=== PATIENT | female | born 1950 | race Caucasian/White ===

== ENCOUNTER → 2016-12-27 | Outpatient (CLI) | payer MEDICARE ==
[~2016-12-27] MED LIST: ACYC-113 PO; ASPI-515 PO; DIPH25CA61 PO; FURO20TA3 PO; GABA300C10 PO; METO25TA35 PO; SIMV40TA3 PO; TOPI-33 PO; VENL100T PO
== END | disposition home or self-care (01) ==
LOC: CFH 10:10
PROVIDERS: ATTEND Nurse Practitioner Family
DX: J90 Pleural effusion, not elsewhere classified (principal); Z96.611 Presence of right artificial shoulder joint
CPT/HCPCS: 71020

== ENCOUNTER → 2017-01-03 | Outpatient (CLI) | payer MEDICARE | END | disposition home or self-care (01) | LOC: CFH 11:13 | PROVIDERS: ATTEND Nurse Practitioner Family | DX: J18.9 Pneumonia, unspecified organism (principal); Z96.611 Presence of right artificial shoulder joint | CPT/HCPCS: 71020 ==

== ENCOUNTER → 2017-05-24 | Outpatient (CLI) | payer MEDICARE ==
[~2017-05-24] MED LIST changes: -TOPI-33 PO; +TOPI25TA8 PO
== END | disposition home or self-care (01) ==
LOC: CFH 12:02
PROVIDERS: ATTEND Nurse Practitioner Family
DX: J18.9 Pneumonia, unspecified organism (principal)
CPT/HCPCS: 71020

== ENCOUNTER → 2017-05-31 | Outpatient (CLI) | payer MEDICARE | END | disposition home or self-care (01) | LOC: CFH 15:24 | PROVIDERS: ATTEND Nurse Practitioner Family | DX: J18.9 Pneumonia, unspecified organism (principal) | CPT/HCPCS: 71020 ==

== ENCOUNTER → 2017-06-10 | Outpatient (CLI) | payer MEDICARE | END | disposition home or self-care (01) | LOC: CFH 14:20 | PROVIDERS: ATTEND Nurse Practitioner Family | DX: J18.9 Pneumonia, unspecified organism (principal) | CPT/HCPCS: 71020 ==

== ENCOUNTER → 2017-06-22 | Outpatient (CLI) | payer MEDICARE | END | disposition home or self-care (01) | LOC: CFH 11:52 | PROVIDERS: ATTEND Nurse Practitioner Family | DX: J18.9 Pneumonia, unspecified organism (principal) | CPT/HCPCS: 71046 ==

== ENCOUNTER → 2017-07-08 | Outpatient (CLI) | payer MEDICARE | END | disposition home or self-care (01) | LOC: CFH 11:30 | PROVIDERS: ATTEND Nurse Practitioner Family | DX: J18.9 Pneumonia, unspecified organism (principal) | CPT/HCPCS: 71046 ==

== ENCOUNTER → 2017-07-28 | Outpatient (CLI) | payer MEDICARE | LOC: CFH 10:20 | PROVIDERS: ATTEND Nurse Practitioner Family | DX: Z12.31 Encounter for screening mammogram for malignant neoplasm of breast (principal) | CPT/HCPCS: 77067 ==

== ENCOUNTER → 2017-08-09 | Outpatient (CLI) | payer MEDICARE | LOC: CFH 12:12 | PROVIDERS: ATTEND Nurse Practitioner Family | DX: N63.20 Unspecified lump in the left breast, unspecified quadrant (principal); N63.12 Unspecified lump in the right breast, upper inner quadrant; N64.89 Other specified disorders of breast | CPT/HCPCS: 77065 ==

== ENCOUNTER → 2017-08-16 | Outpatient (CLI) | payer MEDICARE ==
[~2017-08-16] MED LIST changes: +OMNIPAQUE 350 MG/ML, 75ML BOTTLE ONE
== END | disposition home or self-care (01) ==
LOC: CFH 10:01
PROVIDERS: ATTEND Nurse Practitioner Family
DX: R91.8 Other nonspecific abnormal finding of lung field (principal); J44.9 Chronic obstructive pulmonary disease, unspecified; J18.9 Pneumonia, unspecified organism; R63.4 Abnormal weight loss
CPT/HCPCS: 71260; 82565; Q9967

== ENCOUNTER → 2017-08-18 | Outpatient (CLI) | payer MEDICARE ==
[~2017-08-18] MED LIST changes: +LIDOCAINE 1%, 20ML ONE; -OMNIPAQUE 350 MG/ML, 75ML BOTTLE ONE
== END | disposition home or self-care (01) ==
LOC: CFH 07:55
PROVIDERS: ATTEND Nurse Practitioner Family
DX: N63.10 Unspecified lump in the right breast, unspecified quadrant (principal)
CPT/HCPCS: 19083; 77065; 88305; J3490

== ENCOUNTER 2017-09-26 10:59 | Day surgery (SDC) | payer MEDICARE ==
[~2017-09-26] VITALS: Ht 167.6 cm; Wt 45.0 kg
[~2017-09-26 10:59] MED LIST changes: +BUPIVACAINE/PF 0.25% ONE; +ISOSULFAN BLUE 10 MG/ML, 5ML IV ONE; -LIDOCAINE 1%, 20ML ONE
[2017-09-26] MEDS ORDERED: LACTATED RINGERS 1,000 ML IV SCH (13:26)
[2017-09-26 13:40] VITALS: BP 122/67
[2017-09-26 14:10] LABS: ALANINE AMINOTRANSFERASE 19 U/L (12-78); ALBUMIN 3.6 g/dL (3.4-5.0); ANION GAP 5 mmol/L (5-15); CALCIUM 9.2 mg/dL (8.5-10.1); CHLORIDE 106 mmol/L (98-107)
[2017-09-26 14:12] LABS: ALKALINE PHOSPHATASE 144 U/L (45-117); BILIRUBIN,TOTAL 0.5 mg/dL (0.2-1.0); TOTAL PROTEIN 7.2 g/dL (6.4-8.2)
[2017-09-26] MEDS ORDERED: VENL100T PO (14:14)
[2017-09-26] MEDS ORDERED: MIDAZOLAM 1 MG/ML, 2ML ONE (15:24)
[2017-09-26] MEDS ORDERED: FENTANYL PF 250 MCG/5ML ONE (15:25)
[2017-09-26] MEDS ORDERED: ONDANSETRON 2MG/ML, 2ML ONE (15:37)
[2017-09-26] MEDS ORDERED: PROPOFOL 10 MG/ML, 20ML ONE (15:37)
[2017-09-26] MEDS ORDERED: DEXAMETHASONE 4 MG/ML, 5ML ONE (15:37)
[2017-09-26] MEDS ORDERED: CEFAZOLIN 1,000 MG ONE (15:37)
[2017-09-26] MEDS ORDERED: OXYcodone 5 MG/5 ML ORAL.SOL UDC PO PRN (16:30)
[2017-09-26] MEDS ORDERED: HYDROmorphone 2 MG/ML, 1ML IV PRN (16:30)
[2017-09-26] MEDS ORDERED: PROMETHAZINE 12.5 MG SUPP PR PRN (16:30)
[2017-09-26] MEDS ORDERED: LORazepam 2 MG/ML, 1ML IVPush PRN (16:30)
[2017-09-26] MEDS ORDERED: ACETAMINOPHEN 325 MG TABLET PO PRN (16:30)
[2017-09-26] MEDS ORDERED: MEPERIDINE/PF 25MG/0.5ML IVPush PRN (16:30)
[2017-09-26] MEDS ORDERED: ONDANSETRON 2MG/ML, 2ML IVPush PRN (16:30)
[2017-09-26] MEDS ORDERED: LABETALOL 5MG/ML, 20ML IV PRN (16:30)
[2017-09-26] MEDS ORDERED: FENTANYL PF 100 MCG/2ML IV PRN (16:30)
[2017-09-26] MEDS ORDERED: OXYcodone 5 MG/5 ML ORAL.SOL UDC ONE (16:40)
== END 2017-09-26 17:55 ==
LOC: OR 10:59 → OUT 17:55
PROVIDERS: ATTEND Surgery
DX: C50.911 Malignant neoplasm of unspecified site of right female breast (principal); F41.9 Anxiety disorder, unspecified; I25.10 Atherosclerotic heart disease of native coronary artery without angina pectoris; K21.9 Gastro-esophageal reflux disease without esophagitis; E78.5 Hyperlipidemia, unspecified; I10 Essential (primary) hypertension; G43.909 Migraine, unspecified, not intractable, without status migrainosus; I25.2 Old myocardial infarction; Z87.39 Personal history of other diseases of the musculoskeletal system and connective tissue; Z98.890 Other specified postprocedural states; Z90.710 Acquired absence of both cervix and uterus; Z93.1 Gastrostomy status; Z88.6 Allergy status to analgesic agent
CPT/HCPCS: 19285; 19301; 36415; 38525; 76098; 80053; 88305; 88307; 88333; 88334; 93005; J0690; J1100; J2250; J2405; J2704; J3010; J3490; J7120

== ENCOUNTER → 2017-09-26 | Outpatient (CLI) | payer MEDICARE | END | disposition home or self-care (01) | LOC: CFH 10:50 | PROVIDERS: ATTEND Surgery | DX: N63.10 Unspecified lump in the right breast, unspecified quadrant (principal) | CPT/HCPCS: 38792; 77065; A9541; J3490 ==

== ENCOUNTER → 2017-10-14 | Outpatient (CLI) | payer MEDICARE ==
[~2017-10-14] MED LIST changes: -BUPIVACAINE/PF 0.25% ONE; -ISOSULFAN BLUE 10 MG/ML, 5ML IV ONE
== END | disposition home or self-care (01) ==
LOC: ROC 13:10
PROVIDERS: ATTEND Radiology Radiation Oncology
DX: C50.911 Malignant neoplasm of unspecified site of right female breast (principal)
CPT/HCPCS: 99214; G0463

== ENCOUNTER → 2017-10-31 | Outpatient (CLI) | payer MEDICARE ==
[~2017-10-31] MED LIST changes: +GADOBUTROL 7.5 MMOL/7.5 ML PFS ONE
== END ==
LOC: RAD 12:11
PROVIDERS: ATTEND Internal Medicine Hematology & Oncology
DX: C50.411 Malignant neoplasm of upper-outer quadrant of right female breast (principal); M51.36 Other intervertebral disc degeneration, lumbar region; M48.061 Spinal stenosis, lumbar region without neurogenic claudication
CPT/HCPCS: 72158; 72197; A9585

== ENCOUNTER → 2017-12-05 | Outpatient (CLI) | payer MEDICARE ==
[~2017-12-05] MED LIST changes: -GADOBUTROL 7.5 MMOL/7.5 ML PFS ONE
== END | disposition home or self-care (01) ==
LOC: WOUND 09:01
PROVIDERS: ATTEND Internal Medicine
DX: T81.32XA Disruption of internal operation (surgical) wound, not elsewhere classified, initial encounter (principal); I25.2 Old myocardial infarction; F41.9 Anxiety disorder, unspecified; F32.9 Major depressive disorder, single episode, unspecified; F17.210 Nicotine dependence, cigarettes, uncomplicated; Z90.710 Acquired absence of both cervix and uterus; Z90.49 Acquired absence of other specified parts of digestive tract; Z85.3 Personal history of malignant neoplasm of breast; Y83.8 Other surgical procedures as the cause of abnormal reaction of the patient, or of later complication, without mention of misadventure at the time of the procedure; Y92.89 Other specified places as the place of occurrence of the external cause
CPT/HCPCS: 11043; 99215

== ENCOUNTER → 2017-12-12 | Outpatient (CLI) | payer MEDICARE | END | disposition home or self-care (01) | LOC: WOUND 09:13 | PROVIDERS: ATTEND Internal Medicine | DX: T81.31XD Disruption of external operation (surgical) wound, not elsewhere classified, subsequent encounter (principal); F41.9 Anxiety disorder, unspecified; F32.9 Major depressive disorder, single episode, unspecified; I25.2 Old myocardial infarction; F17.210 Nicotine dependence, cigarettes, uncomplicated; Z85.3 Personal history of malignant neoplasm of breast; Z90.710 Acquired absence of both cervix and uterus; Z90.49 Acquired absence of other specified parts of digestive tract; Y83.8 Other surgical procedures as the cause of abnormal reaction of the patient, or of later complication, without mention of misadventure at the time of the procedure | CPT/HCPCS: 11043 ==

== ENCOUNTER → 2017-12-19 | Outpatient (CLI) | payer MEDICARE | END | disposition home or self-care (01) | LOC: WOUND 09:26 | PROVIDERS: ATTEND Internal Medicine | DX: T81.31XD Disruption of external operation (surgical) wound, not elsewhere classified, subsequent encounter (principal); F41.9 Anxiety disorder, unspecified; I25.2 Old myocardial infarction; F32.9 Major depressive disorder, single episode, unspecified; F17.210 Nicotine dependence, cigarettes, uncomplicated; Z85.3 Personal history of malignant neoplasm of breast; Z90.710 Acquired absence of both cervix and uterus; Z90.49 Acquired absence of other specified parts of digestive tract; Y83.8 Other surgical procedures as the cause of abnormal reaction of the patient, or of later complication, without mention of misadventure at the time of the procedure | CPT/HCPCS: 11043 ==

== ENCOUNTER → 2017-12-23 | Outpatient (CLI) | payer MEDICARE | END | disposition home or self-care (01) | LOC: ROC 08:10 | PROVIDERS: ATTEND Radiology Radiation Oncology | DX: Z08 Encounter for follow-up examination after completed treatment for malignant neoplasm (principal); C50.911 Malignant neoplasm of unspecified site of right female breast | CPT/HCPCS: 99212; G0463 ==

== ENCOUNTER → 2017-12-26 | Outpatient (CLI) | payer MEDICARE | END | disposition home or self-care (01) | LOC: WOUND 09:30 | PROVIDERS: ATTEND Internal Medicine | DX: T81.31XD Disruption of external operation (surgical) wound, not elsewhere classified, subsequent encounter (principal); I25.2 Old myocardial infarction; F41.9 Anxiety disorder, unspecified; F32.9 Major depressive disorder, single episode, unspecified; F17.210 Nicotine dependence, cigarettes, uncomplicated; Z85.3 Personal history of malignant neoplasm of breast; Z90.710 Acquired absence of both cervix and uterus; Z90.49 Acquired absence of other specified parts of digestive tract; Y83.8 Other surgical procedures as the cause of abnormal reaction of the patient, or of later complication, without mention of misadventure at the time of the procedure | CPT/HCPCS: 11043 ==

== ENCOUNTER → 2018-01-02 | Outpatient (CLI) | payer MEDICARE | END | disposition home or self-care (01) | LOC: WOUND 09:20 | PROVIDERS: ATTEND Internal Medicine | DX: T81.31XD Disruption of external operation (surgical) wound, not elsewhere classified, subsequent encounter (principal); F41.9 Anxiety disorder, unspecified; I25.2 Old myocardial infarction; F32.9 Major depressive disorder, single episode, unspecified; F17.210 Nicotine dependence, cigarettes, uncomplicated; Z85.3 Personal history of malignant neoplasm of breast; Z90.710 Acquired absence of both cervix and uterus; Z90.49 Acquired absence of other specified parts of digestive tract; Y83.8 Other surgical procedures as the cause of abnormal reaction of the patient, or of later complication, without mention of misadventure at the time of the procedure | CPT/HCPCS: 11043 ==

== ENCOUNTER → 2018-01-13 | Outpatient (CLI) | payer MEDICARE | END | disposition home or self-care (01) | LOC: WOUND 08:45 | PROVIDERS: ATTEND Family Medicine | DX: T81.31XD Disruption of external operation (surgical) wound, not elsewhere classified, subsequent encounter (principal); F32.9 Major depressive disorder, single episode, unspecified; I25.2 Old myocardial infarction; F41.9 Anxiety disorder, unspecified; F17.210 Nicotine dependence, cigarettes, uncomplicated; Z90.710 Acquired absence of both cervix and uterus; Z90.49 Acquired absence of other specified parts of digestive tract; Z85.3 Personal history of malignant neoplasm of breast; Y83.8 Other surgical procedures as the cause of abnormal reaction of the patient, or of later complication, without mention of misadventure at the time of the procedure | CPT/HCPCS: 97605 ==

== ENCOUNTER → 2018-01-16 | Outpatient (CLI) | payer MEDICARE | END | disposition home or self-care (01) | LOC: WOUND 07:55 | PROVIDERS: ATTEND Internal Medicine | DX: T81.31XD Disruption of external operation (surgical) wound, not elsewhere classified, subsequent encounter (principal); F41.9 Anxiety disorder, unspecified; I25.2 Old myocardial infarction; F32.9 Major depressive disorder, single episode, unspecified; F17.210 Nicotine dependence, cigarettes, uncomplicated; Z85.3 Personal history of malignant neoplasm of breast; Z90.710 Acquired absence of both cervix and uterus; Z90.49 Acquired absence of other specified parts of digestive tract; Y83.8 Other surgical procedures as the cause of abnormal reaction of the patient, or of later complication, without mention of misadventure at the time of the procedure | CPT/HCPCS: 97605 ==

== ENCOUNTER → 2018-01-18 | Outpatient (CLI) | payer MEDICARE | END | disposition home or self-care (01) | LOC: WOUND 13:04 | PROVIDERS: ATTEND Internal Medicine | DX: T81.31XD Disruption of external operation (surgical) wound, not elsewhere classified, subsequent encounter (principal); F41.9 Anxiety disorder, unspecified; F32.9 Major depressive disorder, single episode, unspecified; I25.2 Old myocardial infarction; F17.210 Nicotine dependence, cigarettes, uncomplicated; Z85.3 Personal history of malignant neoplasm of breast; Z90.49 Acquired absence of other specified parts of digestive tract; Z90.710 Acquired absence of both cervix and uterus; Y83.8 Other surgical procedures as the cause of abnormal reaction of the patient, or of later complication, without mention of misadventure at the time of the procedure | CPT/HCPCS: 97605 ==

== ENCOUNTER → 2018-01-20 | Outpatient (CLI) | payer MEDICARE | END | disposition home or self-care (01) | LOC: WOUND 13:05 | PROVIDERS: ATTEND Family Medicine | DX: T81.31XD Disruption of external operation (surgical) wound, not elsewhere classified, subsequent encounter (principal); F32.9 Major depressive disorder, single episode, unspecified; I25.2 Old myocardial infarction; F41.9 Anxiety disorder, unspecified; F17.210 Nicotine dependence, cigarettes, uncomplicated; Z90.710 Acquired absence of both cervix and uterus; Z90.49 Acquired absence of other specified parts of digestive tract; Z85.3 Personal history of malignant neoplasm of breast; Y83.8 Other surgical procedures as the cause of abnormal reaction of the patient, or of later complication, without mention of misadventure at the time of the procedure | CPT/HCPCS: 97605 ==

== ENCOUNTER → 2018-01-23 | Outpatient (CLI) | payer MEDICARE | END | disposition home or self-care (01) | LOC: WOUND 10:30 | PROVIDERS: ATTEND Internal Medicine | DX: T81.31XD Disruption of external operation (surgical) wound, not elsewhere classified, subsequent encounter (principal); I25.2 Old myocardial infarction; F41.9 Anxiety disorder, unspecified; F32.9 Major depressive disorder, single episode, unspecified; F17.210 Nicotine dependence, cigarettes, uncomplicated; Z85.3 Personal history of malignant neoplasm of breast; Z90.710 Acquired absence of both cervix and uterus; Z90.49 Acquired absence of other specified parts of digestive tract; Y83.8 Other surgical procedures as the cause of abnormal reaction of the patient, or of later complication, without mention of misadventure at the time of the procedure | CPT/HCPCS: 97597 ==

== ENCOUNTER → 2018-01-30 | Outpatient (CLI) | payer MEDICARE | END | disposition home or self-care (01) | LOC: WOUND 08:50 | PROVIDERS: ATTEND Internal Medicine | DX: T81.31XD Disruption of external operation (surgical) wound, not elsewhere classified, subsequent encounter (principal); C50.511 Malignant neoplasm of lower-outer quadrant of right female breast; I25.2 Old myocardial infarction; F41.9 Anxiety disorder, unspecified; F32.9 Major depressive disorder, single episode, unspecified; F17.210 Nicotine dependence, cigarettes, uncomplicated; Z90.710 Acquired absence of both cervix and uterus; Z90.49 Acquired absence of other specified parts of digestive tract; Y83.8 Other surgical procedures as the cause of abnormal reaction of the patient, or of later complication, without mention of misadventure at the time of the procedure | CPT/HCPCS: 11042; 97605 ==

== ENCOUNTER → 2018-02-01 | Outpatient (CLI) | payer MEDICARE | END | disposition home or self-care (01) | LOC: WOUND 08:10 | PROVIDERS: ATTEND Internal Medicine | DX: T81.31XD Disruption of external operation (surgical) wound, not elsewhere classified, subsequent encounter (principal); I25.2 Old myocardial infarction; F32.9 Major depressive disorder, single episode, unspecified; F41.9 Anxiety disorder, unspecified; F17.210 Nicotine dependence, cigarettes, uncomplicated; Z90.710 Acquired absence of both cervix and uterus; Z90.49 Acquired absence of other specified parts of digestive tract; Z85.3 Personal history of malignant neoplasm of breast; Y83.8 Other surgical procedures as the cause of abnormal reaction of the patient, or of later complication, without mention of misadventure at the time of the procedure | CPT/HCPCS: 97605 ==

== ENCOUNTER → 2018-02-03 | Outpatient (CLI) | payer MEDICARE | END | disposition home or self-care (01) | LOC: WOUND 08:00 | PROVIDERS: ATTEND Family Medicine | DX: T81.31XD Disruption of external operation (surgical) wound, not elsewhere classified, subsequent encounter (principal); I25.2 Old myocardial infarction; F32.9 Major depressive disorder, single episode, unspecified; F41.9 Anxiety disorder, unspecified; F17.210 Nicotine dependence, cigarettes, uncomplicated; Z90.710 Acquired absence of both cervix and uterus; Z90.49 Acquired absence of other specified parts of digestive tract; Z85.3 Personal history of malignant neoplasm of breast; Y83.8 Other surgical procedures as the cause of abnormal reaction of the patient, or of later complication, without mention of misadventure at the time of the procedure | CPT/HCPCS: 97605 ==

== ENCOUNTER → 2018-02-06 | Outpatient (CLI) | payer MEDICARE | END | disposition home or self-care (01) | LOC: WOUND 08:14 | PROVIDERS: ATTEND Internal Medicine | DX: T81.31XD Disruption of external operation (surgical) wound, not elsewhere classified, subsequent encounter (principal); F32.9 Major depressive disorder, single episode, unspecified; I25.2 Old myocardial infarction; F17.210 Nicotine dependence, cigarettes, uncomplicated; F41.9 Anxiety disorder, unspecified; Z90.710 Acquired absence of both cervix and uterus; Z90.49 Acquired absence of other specified parts of digestive tract; Z85.3 Personal history of malignant neoplasm of breast; Y83.8 Other surgical procedures as the cause of abnormal reaction of the patient, or of later complication, without mention of misadventure at the time of the procedure | CPT/HCPCS: 97597 ==

== ENCOUNTER → 2018-02-08 | Outpatient (CLI) | payer MEDICARE | END | disposition home or self-care (01) | LOC: WOUND 07:47 | PROVIDERS: ATTEND Internal Medicine Cardiovascular Disease | DX: T81.31XD Disruption of external operation (surgical) wound, not elsewhere classified, subsequent encounter (principal); I25.2 Old myocardial infarction; F41.9 Anxiety disorder, unspecified; F32.9 Major depressive disorder, single episode, unspecified; F17.210 Nicotine dependence, cigarettes, uncomplicated; Z85.3 Personal history of malignant neoplasm of breast; Z90.710 Acquired absence of both cervix and uterus; Z90.49 Acquired absence of other specified parts of digestive tract; Y83.8 Other surgical procedures as the cause of abnormal reaction of the patient, or of later complication, without mention of misadventure at the time of the procedure | CPT/HCPCS: 97605 ==

== ENCOUNTER → 2018-02-10 | Outpatient (CLI) | payer MEDICARE | END | disposition home or self-care (01) | LOC: WOUND 09:06 | PROVIDERS: ATTEND Internal Medicine Cardiovascular Disease | DX: T81.31XD Disruption of external operation (surgical) wound, not elsewhere classified, subsequent encounter (principal); I25.2 Old myocardial infarction; F32.9 Major depressive disorder, single episode, unspecified; F41.9 Anxiety disorder, unspecified; F17.210 Nicotine dependence, cigarettes, uncomplicated; Z90.710 Acquired absence of both cervix and uterus; Z90.49 Acquired absence of other specified parts of digestive tract; Z85.3 Personal history of malignant neoplasm of breast; Y83.8 Other surgical procedures as the cause of abnormal reaction of the patient, or of later complication, without mention of misadventure at the time of the procedure | CPT/HCPCS: 99213 ==

== ENCOUNTER → 2018-02-15 | Outpatient (CLI) | payer MEDICARE | END | disposition home or self-care (01) | LOC: ROC 07:34 | PROVIDERS: ATTEND Radiology Radiation Oncology | DX: C50.211 Malignant neoplasm of upper-inner quadrant of right female breast (principal); Z17.1 Estrogen receptor negative status [ER-] | CPT/HCPCS: 99212; G0463 ==

== ENCOUNTER → 2018-02-15 | Outpatient (CLI) | payer MEDICARE | END | disposition home or self-care (01) | LOC: WOUND 08:56 | PROVIDERS: ATTEND Internal Medicine | DX: T81.31XD Disruption of external operation (surgical) wound, not elsewhere classified, subsequent encounter (principal); I25.2 Old myocardial infarction; F41.9 Anxiety disorder, unspecified; F17.210 Nicotine dependence, cigarettes, uncomplicated; F32.9 Major depressive disorder, single episode, unspecified; Z90.710 Acquired absence of both cervix and uterus; Z90.49 Acquired absence of other specified parts of digestive tract; Z85.3 Personal history of malignant neoplasm of breast; Y83.8 Other surgical procedures as the cause of abnormal reaction of the patient, or of later complication, without mention of misadventure at the time of the procedure | CPT/HCPCS: 97597 ==

== ENCOUNTER → 2018-02-22 | Outpatient (CLI) | payer MEDICARE | END | disposition home or self-care (01) | LOC: WOUND 08:00 | PROVIDERS: ATTEND Internal Medicine | DX: T81.31XD Disruption of external operation (surgical) wound, not elsewhere classified, subsequent encounter (principal); F41.9 Anxiety disorder, unspecified; F32.9 Major depressive disorder, single episode, unspecified; F17.210 Nicotine dependence, cigarettes, uncomplicated; I25.2 Old myocardial infarction; Z90.49 Acquired absence of other specified parts of digestive tract; Z90.710 Acquired absence of both cervix and uterus; Z85.3 Personal history of malignant neoplasm of breast; Y83.8 Other surgical procedures as the cause of abnormal reaction of the patient, or of later complication, without mention of misadventure at the time of the procedure | CPT/HCPCS: 99214 ==

== ENCOUNTER → 2018-05-08 | Outpatient (CLI) | payer MEDICARE | END | disposition home or self-care (01) | LOC: ROC 07:15 | PROVIDERS: ATTEND Radiology Radiation Oncology | DX: Z08 Encounter for follow-up examination after completed treatment for malignant neoplasm (principal); C50.211 Malignant neoplasm of upper-inner quadrant of right female breast; Z88.5 Allergy status to narcotic agent | CPT/HCPCS: 99212; G0463 ==

== ENCOUNTER 2018-08-20 14:45 | Inpatient (IN) | payer MEDICARE ==
[~2018-08-20] VITALS: Ht 168.9 cm; Wt 41.9 kg
--- NOTE | 2018-08-20 15:30 | NUR ---
PT GIVEN WARM BLANKETS AND ICE CHIPS
[2018-08-20 15:52] LABS: BASOPHILS # (AUTO) 0.03 x10^3/uL (0-0.1); BASOPHILS % (AUTO) 0 % (0-1); EOSINOPHILS # (AUTO) 0.02 x10^3/uL (0-0.4); EOSINOPHILS % (AUTO) 0 % (1-7); LYMPHOCYTES # (AUTO) 0.66 x10^3/uL (1-3.4); LYMPHOCYTES % (AUTO) 6 % (22-44); MD NO; MEAN CORPUSCULAR HEMOGLOBIN 33.5 pg (27.0-34.8); MEAN CORPUSCULAR HGB CONC 34.4 g/dL (32.4-35.8); MEAN CORPUSCULAR VOLUME 97.4 fL (80-100); MEAN PLATELET VOLUME 7.3 fL (7.4-10.4); MONOCYTES # (AUTO) 0.42 x10^3/uL (0.2-0.8); MONOCYTES % (AUTO) 4 % (2-9); NEUTROPHILS # (AUTO) 9.43 x10^3/uL (1.8-6.8); NEUTROPHILS % (AUTO) 89 % (42-75); PLATELET COUNT 367 x10^3/uL (130-400); RED BLOOD COUNT 3.84 x10^6/uL (3.82-5.3); RED CELL DISTRIBUTION WIDTH 14.8 % (9.6-15.2)
[2018-08-20 15:59] LABS: ALANINE AMINOTRANSFERASE 21 U/L (12-78); ALBUMIN 3.2 g/dL (3.4-5.0); ANION GAP 7 mmol/L (5-15); CALCIUM 10.1 mg/dL (8.5-10.1); CHLORIDE 99 mmol/L (98-107); CREATININE 0.64 mg/dL (0.55-1.02)
[2018-08-20 16:03] LABS: ALKALINE PHOSPHATASE 136 U/L (45-117); BILIRUBIN,TOTAL 0.6 mg/dL (0.2-1.0); TOTAL PROTEIN 6.8 g/dL (6.4-8.2); TROPONIN I < 0.015 ng/mL (0.000-0.045)
[2018-08-20 16:19] LABS: MICROSCOPIC NOT IND
[2018-08-20 16:24] LABS: CULTURE INDICATED? NO
[2018-08-20] MEDS ORDERED: SODIUM CHLORIDE 0.9% 1,000 ML IV ONE (17:47)
[2018-08-20] MEDS ORDERED: SODIUM CHLORIDE FLUSH 10ML SYR IVF PRN (18:00)
[2018-08-20] MEDS ORDERED: POLYETHYLENE GLYCOL 17 GM PACKET PO PRN (19:00)
[2018-08-20] MEDS ORDERED: ONDANSETRON ODT 4 MG PO PRN (19:00)
[2018-08-20] MEDS ORDERED: BISACODYL 10 MG SUPP PR PRN (19:00)
[2018-08-20 19:15] VITALS: BP 143/70
[2018-08-20] MEDS: SIMVASTATIN 40 MG TABLET PO SCH (19:58)
[2018-08-20] MEDS: ACETAMINOPHEN 325 MG TABLET PO PRN (19:58)
[2018-08-20] MEDS ORDERED: MAALOX/HYOSCYAMINE/LIDOCAINE 45 ML BTL PO ONE (22:30)
[2018-08-20] MEDS: SODIUM CHLORIDE 0.9% 1,000 ML IV SCH (22:41)
[2018-08-21 01:03] VITALS: BP 146/73
[2018-08-21 04:56] LABS: ALANINE AMINOTRANSFERASE 19 U/L (12-78); ALBUMIN 2.7 g/dL (3.4-5.0); ANION GAP 3 mmol/L (5-15); CALCIUM 8.6 mg/dL (8.5-10.1); CHLORIDE 107 mmol/L (98-107); CREATININE 0.57 mg/dL (0.55-1.02)
[2018-08-21 04:57] LABS: BASOPHILS # (AUTO) 0.03 x10^3/uL (0-0.1); BASOPHILS % (AUTO) 0 % (0-1); EOSINOPHILS % (AUTO) 0 % (1-7); LYMPHOCYTES # (AUTO) 0.56 x10^3/uL (1-3.4); LYMPHOCYTES % (AUTO) 8 % (22-44); MD NO; MEAN CORPUSCULAR HGB CONC 33.8 g/dL (32.4-35.8); MEAN CORPUSCULAR VOLUME 97.6 fL (80-100); MEAN PLATELET VOLUME 7.3 fL (7.4-10.4); MONOCYTES # (AUTO) 0.45 x10^3/uL (0.2-0.8); MONOCYTES % (AUTO) 7 % (2-9); NEUTROPHILS # (AUTO) 5.85 x10^3/uL (1.8-6.8); NEUTROPHILS % (AUTO) 85 % (42-75); PLATELET COUNT 321 x10^3/uL (130-400); RED BLOOD COUNT 3.65 x10^6/uL (3.82-5.3); RED CELL DISTRIBUTION WIDTH 14.8 % (9.6-15.2)
[2018-08-21 04:59] LABS: ALKALINE PHOSPHATASE 127 U/L (45-117); BILIRUBIN,TOTAL 0.3 mg/dL (0.2-1.0); TOTAL PROTEIN 6.2 g/dL (6.4-8.2)
[2018-08-21] MEDS: SODIUM CHLORIDE 0.9% 1,000 ML IV SCH ×2 (06:28→21:37)
[2018-08-21] MEDS ORDERED: POTASSIUM PHOSPHATE 44 MEQ in SODIUM CHLORIDE 0.9% 500 ML IV ONE (07:00)
[2018-08-21] MEDS ORDERED: MAGNESIUM SULFATE PMX 2GM/50ML 50 ML IV ONE ×2 (07:00→15:00)
[2018-08-21] MEDS: ACETAMINOPHEN 325 MG TABLET PO PRN ×3 (07:45→21:36)
[2018-08-21 07:48] VITALS: BP 137/99
[2018-08-21] MEDS: VENLAFAXINE 50MG TABLET PO SCH (08:08)
[2018-08-21] MEDS: GABAPENTIN 300 MG CAPSULE PO SCH (08:08)
[2018-08-21] MEDS: SENNA/DOCUSATE TABLET PO SCH (08:08)
[2018-08-21] MEDS: POTASSIUM CHLORIDE 20 MEQ TAB.ER.PRT PO SCH ×2 (08:08→16:40)
[2018-08-21] MEDS: ACYCLOVIR 200 MG CAPSULE PO SCH (08:08)
[2018-08-21] MEDS: METOPROLOL TARTRATE 25 MG TABLET PO SCH (08:08)
[2018-08-21] MEDS: TOPIRAMATE 25 MG TABLET PO SCH (08:09)
[2018-08-21] MEDS: FUROSEMIDE 20 MG TABLET PO SCH (08:09)
[2018-08-21] MEDS ORDERED: OXYcodone/APAP 5/325MG TABLET PO PRN (10:00)
[2018-08-21] MEDS ORDERED: LABETALOL 5MG/ML, 20ML IVPush PRN (12:00)
[2018-08-21] MEDS: MAALOX/HYOSCYAMINE/LIDOCAINE 45 ML BTL PO PRN ×2 (12:24→18:15)
[2018-08-21] MEDS: LISINOPRIL 20 MG TABLET PO SCH (12:25)
[2018-08-21] MEDS: HEPARIN 5,000 UNITS/ML, 1ML SQ SCH ×2 (12:26→21:36)
[2018-08-21 13:47] VITALS: BP 214/94
[2018-08-21 14:16] VITALS: BP 191/74
[2018-08-21] MEDS: hydrALAzine 20 MG/ML, 1ML IV PRN (16:40)
[2018-08-21 17:12] VITALS: BP 150/75
[2018-08-21 18:54] VITALS: BP 156/74
[2018-08-21] MEDS: SIMVASTATIN 40 MG TABLET PO SCH (21:36)
[2018-08-22] MEDS: MAALOX/HYOSCYAMINE/LIDOCAINE 45 ML BTL PO PRN ×2 (01:04→17:25)
[2018-08-22 01:44] VITALS: BP 148/76
[2018-08-22] MEDS: HEPARIN 5,000 UNITS/ML, 1ML SQ SCH ×2 (04:00→12:34)
[2018-08-22 05:09] LABS: ALBUMIN 3.1 g/dL (3.4-5.0); ANION GAP 5 mmol/L (5-15); CALCIUM 8.1 mg/dL (8.5-10.1); CHLORIDE 108 mmol/L (98-107)
[2018-08-22 05:12] LABS: ALANINE AMINOTRANSFERASE 25 U/L (12-78); ALKALINE PHOSPHATASE 139 U/L (45-117); BILIRUBIN,TOTAL 1.5 mg/dL (0.2-1.0); CREATININE 0.59 mg/dL (0.55-1.02); TOTAL PROTEIN 6.8 g/dL (6.4-8.2)
[2018-08-22 07:12] VITALS: BP 160/59
[2018-08-22] MEDS: METOPROLOL TARTRATE 25 MG TABLET PO SCH (10:00)
[2018-08-22] MEDS: TOPIRAMATE 25 MG TABLET PO SCH (10:00)
[2018-08-22] MEDS: SENNA/DOCUSATE TABLET PO SCH (10:00)
[2018-08-22] MEDS: ACYCLOVIR 200 MG CAPSULE PO SCH (10:00)
[2018-08-22] MEDS: AMLODIPINE 5 MG TABLET PO SCH ×2 (10:00→21:17)
[2018-08-22] MEDS: FUROSEMIDE 20 MG TABLET PO SCH (10:00)
[2018-08-22] MEDS: LISINOPRIL 20 MG TABLET PO SCH (10:00)
[2018-08-22] MEDS: GABAPENTIN 300 MG CAPSULE PO SCH (10:00)
[2018-08-22] MEDS: VENLAFAXINE 50MG TABLET PO SCH (10:00)
[2018-08-22] MEDS: POTASSIUM CHLORIDE 20 MEQ TAB.ER.PRT PO SCH (10:00)
[2018-08-22 12:15] VITALS: BP 181/81
[2018-08-22 12:17] LABS: BASOPHILS # (AUTO) 0.04 x10^3/uL (0-0.1); BASOPHILS % (AUTO) 1 % (0-1); EOSINOPHILS % (AUTO) 0 % (1-7); LYMPHOCYTES # (AUTO) 0.52 x10^3/uL (1-3.4); LYMPHOCYTES % (AUTO) 7 % (22-44); MD NO; MEAN CORPUSCULAR HEMOGLOBIN 32.5 pg (27.0-34.8); MEAN CORPUSCULAR HGB CONC 33.5 g/dL (32.4-35.8); MEAN CORPUSCULAR VOLUME 96.9 fL (80-100); MEAN PLATELET VOLUME 7.3 fL (7.4-10.4); MONOCYTES # (AUTO) 0.43 x10^3/uL (0.2-0.8); MONOCYTES % (AUTO) 6 % (2-9); NEUTROPHILS # (AUTO) 6.65 x10^3/uL (1.8-6.8); NEUTROPHILS % (AUTO) 87 % (42-75); PLATELET COUNT 326 x10^3/uL (130-400); RED BLOOD COUNT 3.61 x10^6/uL (3.82-5.3); RED CELL DISTRIBUTION WIDTH 15.2 % (9.6-15.2)
[2018-08-22] MEDS ORDERED: OMNIPAQUE 350 MG/ML, 100ML BOTTLE ONE (12:47)
[2018-08-22] MEDS ORDERED: POTASSIUM PHOSPHATE 22 MEQ in SODIUM CHLORIDE 0.9% 500 ML IV ONE (13:00)
[2018-08-22] MEDS: hydrALAzine 20 MG/ML, 1ML IV PRN (13:28)
[2018-08-22 15:23] LABS: OCCULT BLOOD POSITIVE (NEGATIVE)
[2018-08-22] MEDS ORDERED: LORazepam 2 MG/ML, 1ML IVPush ONE (16:30)
[2018-08-22] MEDS: PANTOPRAZOLE 40 MG IV IVPush SCH (17:03)
[2018-08-22] MEDS: CEFTRIAXONE PMX 1GM/50ML 50 ML IV SCH (17:25)
[2018-08-22 17:31] LABS: BASOPHILS # (AUTO) 0.01 x10^3/uL (0-0.1); BASOPHILS % (AUTO) 0 % (0-1); EOSINOPHILS # (AUTO) 0.14 x10^3/uL (0-0.4); EOSINOPHILS % (AUTO) 2 % (1-7); LYMPHOCYTES # (AUTO) 0.47 x10^3/uL (1-3.4); LYMPHOCYTES % (AUTO) 5 % (22-44); MD NO; MEAN CORPUSCULAR HEMOGLOBIN 31.9 pg (27.0-34.8); MEAN CORPUSCULAR HGB CONC 33.3 g/dL (32.4-35.8); MEAN CORPUSCULAR VOLUME 95.9 fL (80-100); MEAN PLATELET VOLUME 7.7 fL (7.4-10.4); MONOCYTES # (AUTO) 0.41 x10^3/uL (0.2-0.8); MONOCYTES % (AUTO) 5 % (2-9); NEUTROPHILS # (AUTO) 7.99 x10^3/uL (1.8-6.8); NEUTROPHILS % (AUTO) 89 % (42-75); PLATELET COUNT 408 x10^3/uL (130-400); RED CELL DISTRIBUTION WIDTH 14.9 % (9.6-15.2)
[2018-08-22] MEDS: METRONIDAZOLE PMX 500MG/100ML 100 ML IV SCH (18:04)
[2018-08-22 18:51] VITALS: BP 156/65
[2018-08-22] MEDS: SIMVASTATIN 40 MG TABLET PO SCH (21:00)
[2018-08-23 00:02] VITALS: BP 156/66
[2018-08-23 00:21] LABS: OCCULT BLOOD POSITIVE (NEGATIVE)
[2018-08-23 00:56] LABS: BASOPHILS # (AUTO) 0.02 x10^3/uL (0-0.1); BASOPHILS % (AUTO) 0 % (0-1); EOSINOPHILS % (AUTO) 0 % (1-7); LYMPHOCYTES # (AUTO) 0.48 x10^3/uL (1-3.4); LYMPHOCYTES % (AUTO) 6 % (22-44); MD NO; MEAN CORPUSCULAR HEMOGLOBIN 33.1 pg (27.0-34.8); MEAN CORPUSCULAR HGB CONC 34.1 g/dL (32.4-35.8); MEAN CORPUSCULAR VOLUME 97.1 fL (80-100); MEAN PLATELET VOLUME 7.4 fL (7.4-10.4); MONOCYTES # (AUTO) 0.43 x10^3/uL (0.2-0.8); MONOCYTES % (AUTO) 6 % (2-9); NEUTROPHILS # (AUTO) 6.48 x10^3/uL (1.8-6.8); NEUTROPHILS % (AUTO) 88 % (42-75); PLATELET COUNT 368 x10^3/uL (130-400); RED BLOOD COUNT 3.34 x10^6/uL (3.82-5.3); RED CELL DISTRIBUTION WIDTH 14.6 % (9.6-15.2)
[2018-08-23] MEDS: METRONIDAZOLE PMX 500MG/100ML 100 ML IV SCH ×3 (01:36→18:30)
[2018-08-23] MEDS: PANTOPRAZOLE 40 MG IV IVPush SCH ×2 (04:29→17:26)
[2018-08-23 06:38] VITALS: BP 150/69
[2018-08-23 06:48] LABS: BASOPHILS # (AUTO) 0.02 x10^3/uL (0-0.1); BASOPHILS % (AUTO) 0 % (0-1); EOSINOPHILS % (AUTO) 0 % (1-7); LYMPHOCYTES % (AUTO) 7 % (22-44); MD NO; MEAN CORPUSCULAR HEMOGLOBIN 33.9 pg (27.0-34.8); MEAN CORPUSCULAR HGB CONC 34.7 g/dL (32.4-35.8); MEAN CORPUSCULAR VOLUME 97.7 fL (80-100); MEAN PLATELET VOLUME 7.3 fL (7.4-10.4); MONOCYTES # (AUTO) 0.33 x10^3/uL (0.2-0.8); MONOCYTES % (AUTO) 5 % (2-9); NEUTROPHILS # (AUTO) 6.04 x10^3/uL (1.8-6.8); NEUTROPHILS % (AUTO) 88 % (42-75); PLATELET COUNT 341 x10^3/uL (130-400); RED BLOOD COUNT 3.25 x10^6/uL (3.82-5.3); RED CELL DISTRIBUTION WIDTH 14.4 % (9.6-15.2)
[2018-08-23] MEDS: TOPIRAMATE 25 MG TABLET PO SCH (08:11)
[2018-08-23] MEDS: GABAPENTIN 300 MG CAPSULE PO SCH (08:11)
[2018-08-23] MEDS: FUROSEMIDE 20 MG TABLET PO SCH (08:12)
[2018-08-23] MEDS: POTASSIUM CHLORIDE 20 MEQ TAB.ER.PRT PO SCH (08:12)
[2018-08-23] MEDS: SENNA/DOCUSATE TABLET PO SCH (08:12)
[2018-08-23] MEDS: METOPROLOL TARTRATE 25 MG TABLET PO SCH (08:12)
[2018-08-23] MEDS: VENLAFAXINE 50MG TABLET PO SCH (08:13)
[2018-08-23] MEDS: AMLODIPINE 5 MG TABLET PO SCH ×2 (08:13→23:09)
[2018-08-23] MEDS: ACYCLOVIR 200 MG CAPSULE PO SCH (08:13)
[2018-08-23] MEDS: LISINOPRIL 20 MG TABLET PO SCH (08:13)
[2018-08-23 10:41] LABS: CHLORIDE 108 mmol/L (98-107)
[2018-08-23 10:48] LABS: ALANINE AMINOTRANSFERASE 23 U/L (12-78); ALBUMIN 3.2 g/dL (3.4-5.0); ALKALINE PHOSPHATASE 147 U/L (45-117); ANION GAP 9 mmol/L (5-15); BILIRUBIN,TOTAL 0.5 mg/dL (0.2-1.0); CALCIUM 8.2 mg/dL (8.5-10.1); CREATININE 0.51 mg/dL (0.55-1.02); TOTAL PROTEIN 6.8 g/dL (6.4-8.2)
[2018-08-23 12:09] VITALS: BP 166/73
[2018-08-23 12:44] LABS: BASOPHILS # (AUTO) 0.03 x10^3/uL (0-0.1); BASOPHILS % (AUTO) 0 % (0-1); EOSINOPHILS % (AUTO) 0 % (1-7); LYMPHOCYTES # (AUTO) 0.42 x10^3/uL (1-3.4); LYMPHOCYTES % (AUTO) 5 % (22-44); MD NO; MEAN CORPUSCULAR HEMOGLOBIN 33.9 pg (27.0-34.8); MEAN CORPUSCULAR HGB CONC 34.8 g/dL (32.4-35.8); MEAN CORPUSCULAR VOLUME 97.4 fL (80-100); MEAN PLATELET VOLUME 7.4 fL (7.4-10.4); MONOCYTES # (AUTO) 0.26 x10^3/uL (0.2-0.8); MONOCYTES % (AUTO) 3 % (2-9); NEUTROPHILS % (AUTO) 91 % (42-75); PLATELET COUNT 391 x10^3/uL (130-400); RED BLOOD COUNT 3.37 x10^6/uL (3.82-5.3); RED CELL DISTRIBUTION WIDTH 14.8 % (9.6-15.2)
[2018-08-23] MEDS ORDERED: POTASSIUM PHOSPHATE 44 MEQ in SODIUM CHLORIDE 0.9% 500 ML IV ONE (13:00)
[2018-08-23 14:18] LABS: % IRON SATURATION 13 % (20-55); IRON LEVEL 43 mcg/dL (50-170); TOTAL IRON BINDING CAPACITY 338 mcg/dL (250-450)
[2018-08-23] MEDS: CEFTRIAXONE PMX 1GM/50ML 50 ML IV SCH (17:26)
[2018-08-23] MEDS: SIMVASTATIN 40 MG TABLET PO SCH (21:00)
[2018-08-23 21:28] VITALS: BP 166/72
[2018-08-24 01:00] VITALS: BP 165/72
[2018-08-24] MEDS: METRONIDAZOLE PMX 500MG/100ML 100 ML IV SCH ×3 (02:57→16:51)
[2018-08-24] MEDS: PANTOPRAZOLE 40 MG IV IVPush SCH ×2 (04:53→16:05)
[2018-08-24] MEDS: ACETAMINOPHEN 325 MG TABLET PO PRN ×2 (04:57→15:58)
[2018-08-24 05:07] LABS: BASOPHILS # (AUTO) 0.04 x10^3/uL (0-0.1); BASOPHILS % (AUTO) 1 % (0-1); EOSINOPHILS % (AUTO) 0 % (1-7); LYMPHOCYTES # (AUTO) 0.54 x10^3/uL (1-3.4); LYMPHOCYTES % (AUTO) 8 % (22-44); MD NO; MEAN CORPUSCULAR HEMOGLOBIN 34.5 pg (27.0-34.8); MEAN CORPUSCULAR HGB CONC 35.3 g/dL (32.4-35.8); MEAN CORPUSCULAR VOLUME 97.7 fL (80-100); MEAN PLATELET VOLUME 7.5 fL (7.4-10.4); MONOCYTES # (AUTO) 0.49 x10^3/uL (0.2-0.8); MONOCYTES % (AUTO) 7 % (2-9); NEUTROPHILS # (AUTO) 6.08 x10^3/uL (1.8-6.8); NEUTROPHILS % (AUTO) 85 % (42-75); PLATELET COUNT 388 x10^3/uL (130-400); RED CELL DISTRIBUTION WIDTH 14.3 % (9.6-15.2)
[2018-08-24 05:12] LABS: ALBUMIN 3.1 g/dL (3.4-5.0); CHLORIDE 107 mmol/L (98-107)
[2018-08-24 05:16] LABS: ALANINE AMINOTRANSFERASE 23 U/L (12-78); ALKALINE PHOSPHATASE 145 U/L (45-117); ANION GAP 7 mmol/L (5-15); BILIRUBIN,TOTAL 0.8 mg/dL (0.2-1.0); CALCIUM 8.5 mg/dL (8.5-10.1); CREATININE 0.48 mg/dL (0.55-1.02); TOTAL PROTEIN 6.8 g/dL (6.4-8.2)
[2018-08-24 05:25] LABS: OCCULT BLOOD POSITIVE (NEGATIVE)
[2018-08-24 06:24] VITALS: BP 162/75
[2018-08-24] MEDS: POTASSIUM CHLORIDE 20 MEQ TAB.ER.PRT PO SCH (08:02)
[2018-08-24] MEDS: VENLAFAXINE 50MG TABLET PO SCH (08:02)
[2018-08-24] MEDS: SENNA/DOCUSATE TABLET PO SCH (08:02)
[2018-08-24] MEDS: LISINOPRIL 20 MG TABLET PO SCH (08:03)
[2018-08-24] MEDS: ACYCLOVIR 200 MG CAPSULE PO SCH (08:03)
[2018-08-24] MEDS: METOPROLOL TARTRATE 25 MG TABLET PO SCH (08:03)
[2018-08-24] MEDS: AMLODIPINE 5 MG TABLET PO SCH ×2 (08:03→21:14)
[2018-08-24] MEDS: FUROSEMIDE 20 MG TABLET PO SCH (08:03)
[2018-08-24] MEDS: TOPIRAMATE 25 MG TABLET PO SCH (08:03)
[2018-08-24 12:02] VITALS: BP 152/73
[2018-08-24 12:31] LABS: BASOPHILS # (AUTO) 0.02 x10^3/uL (0-0.1); BASOPHILS % (AUTO) 0 % (0-1); EOSINOPHILS % (AUTO) 0 % (1-7); LYMPHOCYTES # (AUTO) 0.49 x10^3/uL (1-3.4); LYMPHOCYTES % (AUTO) 6 % (22-44); MD NO; MEAN CORPUSCULAR HEMOGLOBIN 32.2 pg (27.0-34.8); MEAN CORPUSCULAR HGB CONC 33.4 g/dL (32.4-35.8); MEAN CORPUSCULAR VOLUME 96.5 fL (80-100); MEAN PLATELET VOLUME 7.6 fL (7.4-10.4); MONOCYTES % (AUTO) 4 % (2-9); NEUTROPHILS % (AUTO) 90 % (42-75); PLATELET COUNT 437 x10^3/uL (130-400); RED BLOOD COUNT 3.82 x10^6/uL (3.82-5.3); RED CELL DISTRIBUTION WIDTH 14.6 % (9.6-15.2)
[2018-08-24] MEDS: CEFTRIAXONE PMX 1GM/50ML 50 ML IV SCH (15:59)
[2018-08-24 16:44] LABS: BASOPHILS # (AUTO) 0.05 x10^3/uL (0-0.1); BASOPHILS % (AUTO) 1 % (0-1); EOSINOPHILS % (AUTO) 0 % (1-7); LYMPHOCYTES # (AUTO) 0.56 x10^3/uL (1-3.4); LYMPHOCYTES % (AUTO) 7 % (22-44); MD NO; MEAN CORPUSCULAR HEMOGLOBIN 31.9 pg (27.0-34.8); MEAN CORPUSCULAR HGB CONC 33.1 g/dL (32.4-35.8); MEAN CORPUSCULAR VOLUME 96.3 fL (80-100); MEAN PLATELET VOLUME 7.4 fL (7.4-10.4); MONOCYTES # (AUTO) 0.44 x10^3/uL (0.2-0.8); MONOCYTES % (AUTO) 5 % (2-9); NEUTROPHILS % (AUTO) 88 % (42-75); PLATELET COUNT 484 x10^3/uL (130-400); RED BLOOD COUNT 3.81 x10^6/uL (3.82-5.3); RED CELL DISTRIBUTION WIDTH 14.8 % (9.6-15.2)
[2018-08-24 18:25] VITALS: BP 124/67
[2018-08-24] MEDS: SIMVASTATIN 40 MG TABLET PO SCH (21:15)
[2018-08-24 22:14] LABS: BASOPHILS # (AUTO) 0.01 x10^3/uL (0-0.1); BASOPHILS % (AUTO) 0 % (0-1); EOSINOPHILS % (AUTO) 0 % (1-7); LYMPHOCYTES % (AUTO) 8 % (22-44); MD NO; MEAN CORPUSCULAR HEMOGLOBIN 33.8 pg (27.0-34.8); MEAN CORPUSCULAR HGB CONC 34.5 g/dL (32.4-35.8); MEAN PLATELET VOLUME 7.4 fL (7.4-10.4); MONOCYTES # (AUTO) 0.62 x10^3/uL (0.2-0.8); MONOCYTES % (AUTO) 8 % (2-9); NEUTROPHILS # (AUTO) 6.73 x10^3/uL (1.8-6.8); NEUTROPHILS % (AUTO) 85 % (42-75); PLATELET COUNT 431 x10^3/uL (130-400); RED CELL DISTRIBUTION WIDTH 14.3 % (9.6-15.2)
[2018-08-25 01:11] VITALS: BP 137/78
[2018-08-25] MEDS: METRONIDAZOLE PMX 500MG/100ML 100 ML IV SCH ×3 (02:11→18:23)
[2018-08-25] MEDS: PANTOPRAZOLE 40 MG IV IVPush SCH (05:36)
[2018-08-25 06:02] LABS: ALANINE AMINOTRANSFERASE 30 U/L (12-78); ALBUMIN 3.2 g/dL (3.4-5.0); ANION GAP 6 mmol/L (5-15); CHLORIDE 105 mmol/L (98-107); CREATININE 0.46 mg/dL (0.55-1.02)
[2018-08-25 06:04] LABS: ALKALINE PHOSPHATASE 151 U/L (45-117); BILIRUBIN,TOTAL 0.4 mg/dL (0.2-1.0); TOTAL PROTEIN 7.2 g/dL (6.4-8.2)
[2018-08-25 06:10] LABS: BASOPHILS # (AUTO) 0.03 x10^3/uL (0-0.1); BASOPHILS % (AUTO) 0 % (0-1); EOSINOPHILS % (AUTO) 0 % (1-7); LYMPHOCYTES # (AUTO) 0.61 x10^3/uL (1-3.4); LYMPHOCYTES % (AUTO) 7 % (22-44); MD NO; MEAN CORPUSCULAR HEMOGLOBIN 33.3 pg (27.0-34.8); MEAN CORPUSCULAR HGB CONC 34.3 g/dL (32.4-35.8); MEAN CORPUSCULAR VOLUME 97.1 fL (80-100); MEAN PLATELET VOLUME 7.6 fL (7.4-10.4); MONOCYTES # (AUTO) 0.45 x10^3/uL (0.2-0.8); MONOCYTES % (AUTO) 5 % (2-9); NEUTROPHILS # (AUTO) 7.45 x10^3/uL (1.8-6.8); NEUTROPHILS % (AUTO) 87 % (42-75); PLATELET COUNT 449 x10^3/uL (130-400); RED BLOOD COUNT 3.77 x10^6/uL (3.82-5.3); RED CELL DISTRIBUTION WIDTH 14.6 % (9.6-15.2)
[2018-08-25 08:39] VITALS: BP 114/69
[2018-08-25 09:03] LABS: MEAN CORPUSCULAR HEMOGLOBIN 31.8 pg (27.0-34.8); MEAN CORPUSCULAR HGB CONC 33.2 g/dL (32.4-35.8); MEAN CORPUSCULAR VOLUME 95.7 fL (80-100); MEAN PLATELET VOLUME 7.6 fL (7.4-10.4); PLATELET COUNT 550 x10^3/uL (130-400); RED BLOOD COUNT 4.25 x10^6/uL (3.82-5.3); RED CELL DISTRIBUTION WIDTH 14.6 % (9.6-15.2)
[2018-08-25] MEDS: POTASSIUM CHLORIDE 20 MEQ TAB.ER.PRT PO SCH (09:15)
[2018-08-25] MEDS: LISINOPRIL 20 MG TABLET PO SCH (09:15)
[2018-08-25] MEDS: ACYCLOVIR 200 MG CAPSULE PO SCH (09:16)
[2018-08-25] MEDS: SENNA/DOCUSATE TABLET PO SCH (09:16)
[2018-08-25] MEDS: FUROSEMIDE 20 MG TABLET PO SCH (09:16)
[2018-08-25] MEDS: VENLAFAXINE 50MG TABLET PO SCH (09:16)
[2018-08-25] MEDS: AMLODIPINE 5 MG TABLET PO SCH ×2 (09:16→20:57)
[2018-08-25] MEDS: METOPROLOL TARTRATE 25 MG TABLET PO SCH (09:16)
[2018-08-25] MEDS: TOPIRAMATE 25 MG TABLET PO SCH (09:16)
[2018-08-25 09:28] LABS: BASOPHILS # (AUTO) 0.02 x10^3/uL (0-0.1); BASOPHILS % (AUTO) 0 % (0-1); EOSINOPHILS % (AUTO) 0 % (1-7); LYMPHOCYTES # (AUTO) 0.84 x10^3/uL (1-3.4); LYMPHOCYTES % (AUTO) 7 % (22-44); MD SCAN; MONOCYTES # (AUTO) 0.46 x10^3/uL (0.2-0.8); MONOCYTES % (AUTO) 4 % (2-9); NEUTROPHILS # (AUTO) 9.99 x10^3/uL (1.8-6.8); NEUTROPHILS % (AUTO) 88 % (42-75)
[2018-08-25] MEDS: MAALOX/HYOSCYAMINE/LIDOCAINE 45 ML BTL PO PRN ×2 (10:47→17:53)
[2018-08-25] MEDS ORDERED: MAGNESIUM HYDROXIDE 8%, 30ML UDC PO PRN (11:30)
[2018-08-25 14:03] VITALS: BP 119/79
[2018-08-25] MEDS: ACETAMINOPHEN 325 MG TABLET PO PRN (15:09)
[2018-08-25 16:21] LABS: BASOPHILS # (AUTO) 0.03 x10^3/uL (0-0.1); BASOPHILS % (AUTO) 0 % (0-1); EOSINOPHILS % (AUTO) 0 % (1-7); LYMPHOCYTES # (AUTO) 0.82 x10^3/uL (1-3.4); LYMPHOCYTES % (AUTO) 7 % (22-44); MD NO; MEAN CORPUSCULAR HEMOGLOBIN 31.1 pg (27.0-34.8); MEAN CORPUSCULAR HGB CONC 32.5 g/dL (32.4-35.8); MEAN CORPUSCULAR VOLUME 95.6 fL (80-100); MEAN PLATELET VOLUME 7.8 fL (7.4-10.4); MONOCYTES # (AUTO) 0.64 x10^3/uL (0.2-0.8); MONOCYTES % (AUTO) 5 % (2-9); NEUTROPHILS # (AUTO) 10.64 x10^3/uL (1.8-6.8); NEUTROPHILS % (AUTO) 88 % (42-75); PLATELET COUNT 605 x10^3/uL (130-400); RED BLOOD COUNT 4.28 x10^6/uL (3.82-5.3)
[2018-08-25] MEDS: CEFTRIAXONE PMX 1GM/50ML 50 ML IV SCH (17:22)
[2018-08-25 18:32] VITALS: BP 108/61
[2018-08-25] MEDS: SIMVASTATIN 40 MG TABLET PO SCH (20:58)
[2018-08-25] MEDS: PANTOPROZOLE 40MG TABLET PO SCH (21:00)
[2018-08-25 21:56] LABS: BASOPHILS # (AUTO) 0.03 x10^3/uL (0-0.1); BASOPHILS % (AUTO) 0 % (0-1); EOSINOPHILS % (AUTO) 0 % (1-7); LYMPHOCYTES # (AUTO) 0.73 x10^3/uL (1-3.4); LYMPHOCYTES % (AUTO) 7 % (22-44); MD NO; MEAN CORPUSCULAR HEMOGLOBIN 32.1 pg (27.0-34.8); MEAN CORPUSCULAR HGB CONC 33.6 g/dL (32.4-35.8); MEAN CORPUSCULAR VOLUME 95.4 fL (80-100); MEAN PLATELET VOLUME 7.4 fL (7.4-10.4); MONOCYTES # (AUTO) 0.73 x10^3/uL (0.2-0.8); MONOCYTES % (AUTO) 7 % (2-9); NEUTROPHILS # (AUTO) 8.59 x10^3/uL (1.8-6.8); NEUTROPHILS % (AUTO) 85 % (42-75); PLATELET COUNT 448 x10^3/uL (130-400); RED CELL DISTRIBUTION WIDTH 14.9 % (9.6-15.2)
[2018-08-26 01:34] VITALS: BP 112/75
[2018-08-26] MEDS: METRONIDAZOLE PMX 500MG/100ML 100 ML IV SCH (02:05)
[2018-08-26] MEDS: PANTOPROZOLE 40MG TABLET PO SCH (05:12)
[2018-08-26] MEDS: MAALOX/HYOSCYAMINE/LIDOCAINE 45 ML BTL PO PRN ×2 (05:18→17:35)
[2018-08-26 05:21] LABS: BASOPHILS # (AUTO) 0.03 x10^3/uL (0-0.1); BASOPHILS % (AUTO) 0 % (0-1); EOSINOPHILS # (AUTO) 0.16 x10^3/uL (0-0.4); EOSINOPHILS % (AUTO) 2 % (1-7); LYMPHOCYTES # (AUTO) 0.82 x10^3/uL (1-3.4); LYMPHOCYTES % (AUTO) 9 % (22-44); MD NO; MEAN CORPUSCULAR HEMOGLOBIN 33.3 pg (27.0-34.8); MEAN CORPUSCULAR HGB CONC 34.1 g/dL (32.4-35.8); MEAN CORPUSCULAR VOLUME 97.6 fL (80-100); MEAN PLATELET VOLUME 7.7 fL (7.4-10.4); MONOCYTES # (AUTO) 0.63 x10^3/uL (0.2-0.8); MONOCYTES % (AUTO) 7 % (2-9); NEUTROPHILS # (AUTO) 7.41 x10^3/uL (1.8-6.8); NEUTROPHILS % (AUTO) 82 % (42-75); PLATELET COUNT 445 x10^3/uL (130-400); RED BLOOD COUNT 3.83 x10^6/uL (3.82-5.3); RED CELL DISTRIBUTION WIDTH 14.9 % (9.6-15.2)
[2018-08-26 05:29] LABS: CHLORIDE 104 mmol/L (98-107)
[2018-08-26 05:53] LABS: ALANINE AMINOTRANSFERASE 26 U/L (12-78); ALBUMIN 3.1 g/dL (3.4-5.0); ALKALINE PHOSPHATASE 131 U/L (45-117); ANION GAP 7 mmol/L (5-15); BILIRUBIN,TOTAL 0.7 mg/dL (0.2-1.0); CALCIUM 9.3 mg/dL (8.5-10.1); CREATININE 0.66 mg/dL (0.55-1.02); TOTAL PROTEIN 6.8 g/dL (6.4-8.2)
[2018-08-26 07:00] VITALS: BP 114/58
[2018-08-26] MEDS: SENNA/DOCUSATE TABLET PO SCH ×3 (09:00→10:30)
[2018-08-26] MEDS ORDERED: SENNA/DOCUSATE TABLET PO SCH (09:00)
[2018-08-26] MEDS: AMOXICILLIN/CLAV 875-125MG TABLET PO SCH ×2 (10:25→20:50)
[2018-08-26] MEDS: VENLAFAXINE 50MG TABLET PO SCH (10:26)
[2018-08-26] MEDS: AMLODIPINE 5 MG TABLET PO SCH ×2 (10:26→20:50)
[2018-08-26] MEDS: METOPROLOL TARTRATE 25 MG TABLET PO SCH (10:26)
[2018-08-26] MEDS: LISINOPRIL 20 MG TABLET PO SCH (10:27)
[2018-08-26] MEDS: TOPIRAMATE 25 MG TABLET PO SCH (10:27)
[2018-08-26] MEDS: ACYCLOVIR 200 MG CAPSULE PO SCH (10:34)
[2018-08-26 13:15] VITALS: BP 114/58
[2018-08-26 16:39] LABS: BASOPHILS # (AUTO) 0.04 x10^3/uL (0-0.1); BASOPHILS % (AUTO) 0 % (0-1); EOSINOPHILS # (AUTO) 0.02 x10^3/uL (0-0.4); EOSINOPHILS % (AUTO) 0 % (1-7); LYMPHOCYTES % (AUTO) 8 % (22-44); MD NO; MEAN CORPUSCULAR HEMOGLOBIN 31.8 pg (27.0-34.8); MEAN CORPUSCULAR HGB CONC 32.8 g/dL (32.4-35.8); MEAN CORPUSCULAR VOLUME 96.9 fL (80-100); MEAN PLATELET VOLUME 7.7 fL (7.4-10.4); MONOCYTES # (AUTO) 0.61 x10^3/uL (0.2-0.8); MONOCYTES % (AUTO) 7 % (2-9); NEUTROPHILS # (AUTO) 7.37 x10^3/uL (1.8-6.8); NEUTROPHILS % (AUTO) 84 % (42-75); PLATELET COUNT 453 x10^3/uL (130-400); RED BLOOD COUNT 3.68 x10^6/uL (3.82-5.3); RED CELL DISTRIBUTION WIDTH 15.1 % (9.6-15.2)
[2018-08-26 18:30] VITALS: BP 107/63
[2018-08-26] MEDS: SIMVASTATIN 40 MG TABLET PO SCH (20:50)
[2018-08-26 21:06] LABS: BASOPHILS # (AUTO) 0.04 x10^3/uL (0-0.1); BASOPHILS % (AUTO) 1 % (0-1); EOSINOPHILS % (AUTO) 0 % (1-7); LYMPHOCYTES # (AUTO) 0.74 x10^3/uL (1-3.4); LYMPHOCYTES % (AUTO) 9 % (22-44); MD NO; MEAN CORPUSCULAR HEMOGLOBIN 32.5 pg (27.0-34.8); MEAN CORPUSCULAR HGB CONC 33.6 g/dL (32.4-35.8); MEAN CORPUSCULAR VOLUME 96.7 fL (80-100); MEAN PLATELET VOLUME 7.7 fL (7.4-10.4); MONOCYTES # (AUTO) 0.67 x10^3/uL (0.2-0.8); MONOCYTES % (AUTO) 8 % (2-9); NEUTROPHILS # (AUTO) 6.66 x10^3/uL (1.8-6.8); NEUTROPHILS % (AUTO) 82 % (42-75); PLATELET COUNT 431 x10^3/uL (130-400); RED BLOOD COUNT 3.59 x10^6/uL (3.82-5.3); RED CELL DISTRIBUTION WIDTH 14.8 % (9.6-15.2)
[2018-08-26 23:59] VITALS: BP 107/60
[2018-08-27] VITALS: BP 107/60
[2018-08-27] MEDS: MAALOX/HYOSCYAMINE/LIDOCAINE 45 ML BTL PO PRN ×2 (00:10→15:38)
[2018-08-27 04:31] LABS: BASOPHILS # (AUTO) 0.06 x10^3/uL (0-0.1); BASOPHILS % (AUTO) 1 % (0-1); EOSINOPHILS % (AUTO) 0 % (1-7); LYMPHOCYTES # (AUTO) 0.82 x10^3/uL (1-3.4); LYMPHOCYTES % (AUTO) 10 % (22-44); MD NO; MEAN CORPUSCULAR HEMOGLOBIN 32.4 pg (27.0-34.8); MEAN CORPUSCULAR HGB CONC 33.5 g/dL (32.4-35.8); MEAN CORPUSCULAR VOLUME 96.5 fL (80-100); MEAN PLATELET VOLUME 7.7 fL (7.4-10.4); MONOCYTES # (AUTO) 0.74 x10^3/uL (0.2-0.8); MONOCYTES % (AUTO) 9 % (2-9); NEUTROPHILS # (AUTO) 6.81 x10^3/uL (1.8-6.8); NEUTROPHILS % (AUTO) 81 % (42-75); PLATELET COUNT 454 x10^3/uL (130-400); RED BLOOD COUNT 3.74 x10^6/uL (3.82-5.3); RED CELL DISTRIBUTION WIDTH 14.5 % (9.6-15.2)
[2018-08-27 04:39] LABS: ALBUMIN 3.1 g/dL (3.4-5.0); ANION GAP 5 mmol/L (5-15); CHLORIDE 101 mmol/L (98-107)
[2018-08-27 04:42] LABS: ALANINE AMINOTRANSFERASE 20 U/L (12-78); ALKALINE PHOSPHATASE 128 U/L (45-117); BILIRUBIN,TOTAL 0.4 mg/dL (0.2-1.0); CREATININE 0.64 mg/dL (0.55-1.02); TOTAL PROTEIN 6.6 g/dL (6.4-8.2)
[2018-08-27 07:00] VITALS: BP 103/64
[2018-08-27] MEDS: ACETAMINOPHEN 325 MG TABLET PO PRN ×3 (07:43→17:02)
[2018-08-27] MEDS: ACYCLOVIR 200 MG CAPSULE PO SCH (07:44)
[2018-08-27] MEDS: LISINOPRIL 20 MG TABLET PO SCH (07:44)
[2018-08-27] MEDS: METOPROLOL TARTRATE 25 MG TABLET PO SCH (07:44)
[2018-08-27] MEDS: AMLODIPINE 5 MG TABLET PO SCH (07:44)
[2018-08-27] MEDS: VENLAFAXINE 50MG TABLET PO SCH (07:44)
[2018-08-27] MEDS: AMOXICILLIN/CLAV 875-125MG TABLET PO SCH (07:45)
[2018-08-27] MEDS ORDERED: PANTOPROZOLE 40MG TABLET PO SCH (09:00)
[2018-08-27] MEDS ORDERED: AMLO-150 PO (11:24)
[2018-08-27] MEDS ORDERED: ACET325T14 PO (11:24)
[2018-08-27] MEDS ORDERED: PANT40TA5 PO (11:24)
[2018-08-27] MEDS ORDERED: AMOX1TAB12 PO (11:24)
[2018-08-27 13:10] VITALS: BP 94/56
== END 2018-08-27 17:26 | disposition home health service (06) | DRG 70 ==
LOC: ED 15:01 → EDIP 17:47 → 3NW 19:04
PROVIDERS: ADMIT Hospitalist; ATTEND Hospitalist
DX: G93.41 Metabolic encephalopathy (principal); E43 Unspecified severe protein-calorie malnutrition; Z68.1 Body mass index [BMI] 19.9 or less, adult; M51.35 Other intervertebral disc degeneration, thoracolumbar region; I10 Essential (primary) hypertension; R62.7 Adult failure to thrive; R29.6 Repeated falls; E78.5 Hyperlipidemia, unspecified; F32.9 Major depressive disorder, single episode, unspecified; E87.6 Hypokalemia; E83.42 Hypomagnesemia; E83.39 Other disorders of phosphorus metabolism; K52.9 Noninfective gastroenteritis and colitis, unspecified; F17.210 Nicotine dependence, cigarettes, uncomplicated; M51.37 Other intervertebral disc degeneration, lumbosacral region; Z66 Do not resuscitate; W18.39XA Other fall on same level, initial encounter; Y93.89 Activity, other specified; Y92.89 Other specified places as the place of occurrence of the external cause; Y99.8 Other external cause status; Z85.3 Personal history of malignant neoplasm of breast; Z80.1 Family history of malignant neoplasm of trachea, bronchus and lung; Z90.10 Acquired absence of unspecified breast and nipple; Z90.710 Acquired absence of both cervix and uterus; Z91.81 History of falling; Z92.3 Personal history of irradiation
CPT/HCPCS: 36415; 70450; 71045; 72072; 72110; 74177; 80053; 81003; 82140; 82272; 82607; 83540; 83550; 83690; 83735; 84100; 84443; 84484; 85025; 85730; 86592; 86677; 87040; 93005; 95819; 99285; G0378; J0696; J1644; Q0162; Q9967; C9113; J0360; J3475; J7030; J7040

== ENCOUNTER → 2018-10-06 | Outpatient (CLI) | payer MEDICARE ==
[~2018-10-06] MED LIST changes: +ACET325T14 PO; +AMLO-150 PO; +AMOX1TAB12 PO; +PANT40TA5 PO
== END | disposition home or self-care (01) ==
LOC: CFH 12:26
PROVIDERS: ATTEND Nurse Practitioner Family
DX: S33.100A Subluxation of unspecified lumbar vertebra, initial encounter (principal); T84.218A Breakdown (mechanical) of internal fixation device of other bones, initial encounter; M47.817 Spondylosis without myelopathy or radiculopathy, lumbosacral region; M48.07 Spinal stenosis, lumbosacral region; M25.551 Pain in right hip; X58.XXXA Exposure to other specified factors, initial encounter; Y93.89 Activity, other specified; Y92.89 Other specified places as the place of occurrence of the external cause; Y99.8 Other external cause status; Z85.3 Personal history of malignant neoplasm of breast
CPT/HCPCS: 72148

== ENCOUNTER → 2018-12-04 | Outpatient (CLI) | payer MEDICARE | END | disposition home or self-care (01) | LOC: ROC 10:30 | PROVIDERS: ATTEND Radiology Radiation Oncology | DX: Z08 Encounter for follow-up examination after completed treatment for malignant neoplasm (principal); Z85.3 Personal history of malignant neoplasm of breast | CPT/HCPCS: 99212; G0463 ==

== ENCOUNTER → 2018-12-06 | Outpatient (CLI) | payer MEDICARE | END | disposition home or self-care (01) | LOC: CFH 09:45 | PROVIDERS: ATTEND Surgery | DX: M85.89 Other specified disorders of bone density and structure, multiple sites (principal); Z85.3 Personal history of malignant neoplasm of breast; Z87.891 Personal history of nicotine dependence | CPT/HCPCS: 77066; 77080; G0279 ==

== ENCOUNTER 2018-12-26 12:05 | Outpatient (CLI) | payer MEDICARE | END 2018-12-26 23:59 | disposition home or self-care (01) | LOC: STAR 12:05 | PROVIDERS: ATTEND Internal Medicine Cardiovascular Disease | DX: Z01.810 Encounter for preprocedural cardiovascular examination (principal); I35.0 Nonrheumatic aortic (valve) stenosis; E78.5 Hyperlipidemia, unspecified; I10 Essential (primary) hypertension; F17.200 Nicotine dependence, unspecified, uncomplicated | CPT/HCPCS: 36415; 80048; 85025 ==

== ENCOUNTER 2018-12-29 07:37 | Day surgery (SDC) | payer MEDICARE ==
[2018-12-26 12:34] VITALS: BP 120/57
[~2018-12-29] VITALS: Ht 168.9 cm; Wt 49.0 kg
[~2018-12-29 07:37] MED LIST changes: +ALEN70TA3 PO; +BIOT25005 PO; +CALC-126 PO; +CHOL400T10 PO; +FERR325T18 PO; +FLUO40CA9 PO; +FOLI0.4T2 PO; +GUAI-103 PO; +LACT1CAP35 PO; +MULT-658 PO; +NAPR220C2 PO; +POTA20TA89 PO; +SELE200T10 PO; +SENN1TAB67 PO; +meloxicam PO; +mirtazapine PO
[2018-12-29] MEDS ORDERED: HYDR-3237 PO (08:35)
[2018-12-29] MEDS ORDERED: ASPIRIN 325 MG TABLET EC PO ONE (09:00)
[2018-12-29] MEDS ORDERED: FENTANYL PF 100 MCG/2ML ONE (09:29)
[2018-12-29] MEDS ORDERED: TICAGRELOR 90 MG TABLET ONE (09:29)
[2018-12-29] MEDS ORDERED: MIDAZOLAM 1 MG/ML, 5ML ONE (09:29)
[2018-12-29] MEDS ORDERED: BIVALIRUDIN 250 MG ONE (09:29)
[2018-12-29] MEDS ORDERED: LIDOCAINE 2%, 20ML ONE (09:30)
[2018-12-29] MEDS ORDERED: HEPARIN 1,000 UNITS/ML, 10ML ONE (09:36)
[2018-12-29] MEDS ORDERED: NITROGLYCERIN 5 MG/ML, 10ML ONE (09:36)
[2018-12-29] MEDS ORDERED: VERAPAMIL 2.5 MG/ML, 2ML ONE (09:37)
[2018-12-29] MEDS ORDERED: SODIUM CHLORIDE 0.9% 1,000 ML IV SCH (11:00)
== END 2018-12-29 12:00 | disposition home or self-care (01) ==
LOC: CACL 07:37
PROVIDERS: ATTEND Internal Medicine Cardiovascular Disease
DX: I25.10 Atherosclerotic heart disease of native coronary artery without angina pectoris (principal); I35.0 Nonrheumatic aortic (valve) stenosis; I10 Essential (primary) hypertension; E78.2 Mixed hyperlipidemia; J44.9 Chronic obstructive pulmonary disease, unspecified; F41.9 Anxiety disorder, unspecified; F32.9 Major depressive disorder, single episode, unspecified; G43.909 Migraine, unspecified, not intractable, without status migrainosus; M81.0 Age-related osteoporosis without current pathological fracture; F17.210 Nicotine dependence, cigarettes, uncomplicated; Z72.89 Other problems related to lifestyle; Z79.82 Long term (current) use of aspirin; Z79.899 Other long term (current) drug therapy; Z88.5 Allergy status to narcotic agent; Z85.3 Personal history of malignant neoplasm of breast; Z80.1 Family history of malignant neoplasm of trachea, bronchus and lung
CPT/HCPCS: 93458; 99156; C1769; C1894; J1644; J2250; J3010; Q9967; J0583

== ENCOUNTER 2019-01-04 14:47 | Inpatient (IN) | payer MEDICARE ==
[~2019-01-04] VITALS: Ht 167.6 cm; Wt 46.2 kg
[~2019-01-04 14:47] MED LIST changes: +HYDR-3237 PO; +PHENYLEPHRINE 10 MG/ML ONE; +PROPOFOL 10 MG/ML, 20ML ONE
--- NOTE | 2019-01-04 15:15 | NUR ---
PT RESTING ON GUMINE, FRIEND AT BEDSIDE. CONTINIOUS [employer], PULSE OX AND CYCLING BP. CALL LIKGHT IN REACH. NO S/S OF DISTRESS NOTED AT THIS TIME. PT EXPRESSES THAT SHE HAS PAIN IS IN HER BACK R/T SPINAL STENOSIS, SHE HAS THIS PAIN OFTEN.
[2019-01-04] MEDS ORDERED: PANTOPRAZOLE 40 MG IV IVPush ONE (16:00)
[2019-01-04] MEDS ORDERED: SODIUM CHLORIDE FLUSH 10ML SYR IVF ONE (16:00)
[2019-01-04 16:12] LABS: BASOPHILS # (AUTO) 0.01 x10^3/uL (0-0.1); BASOPHILS % (AUTO) 0 % (0-1); EOSINOPHILS % (AUTO) 0 % (1-7); LYMPHOCYTES % (AUTO) 5 % (22-44); MD NO; MEAN CORPUSCULAR HEMOGLOBIN 31.9 pg (27.0-34.8); MEAN CORPUSCULAR HGB CONC 32.6 g/dL (32.4-35.8); MEAN CORPUSCULAR VOLUME 97.7 fL (80-100); MONOCYTES # (AUTO) 0.37 x10^3/uL (0.2-0.8); MONOCYTES % (AUTO) 4 % (2-9); NEUTROPHILS # (AUTO) 7.58 x10^3/uL (1.8-6.8); NEUTROPHILS % (AUTO) 91 % (42-75); PLATELET COUNT 274 x10^3/uL (130-400); RED BLOOD COUNT 2.34 x10^6/uL (3.82-5.3); RED CELL DISTRIBUTION WIDTH 14.1 % (9.6-15.2)
[2019-01-04 16:21] LABS: ANION GAP 10 mmol/L (5-15); CALCIUM 10.4 mg/dL (8.5-10.1); CHLORIDE 99 mmol/L (98-107)
[2019-01-04 16:24] LABS: ALANINE AMINOTRANSFERASE 24 U/L (12-78); ALKALINE PHOSPHATASE 82 U/L (45-117); BILIRUBIN,TOTAL 0.6 mg/dL (0.2-1.0); CREATININE 2.64 mg/dL (0.55-1.02); INTERNATIONAL NORMALIZED RATIO 0.97 (0.93-1.1); PROTHROMBIN TIME 10.2 Seconds (9.6-11.5); TOTAL PROTEIN 6.2 g/dL (6.4-8.2)
[2019-01-04] MEDS ORDERED: hydrALAzine 20 MG/ML, 1ML IVPush PRN (17:30)
[2019-01-04] MEDS ORDERED: PANTOPRAZOLE 40 MG IV ONE (17:30)
[2019-01-04] MEDS ORDERED: PANTOPRAZOLE 80 MG in SODIUM CHLORIDE 0.9% 100 ML IV SCH (17:30)
[2019-01-04] MEDS ORDERED: LACTATED RINGERS 1,000 ML IV SCH (17:30)
[2019-01-04] MEDS ORDERED: DOCUSATE 100 MG CAPSULE PO PRN (17:30)
[2019-01-04] MEDS ORDERED: HYDROcodone/APAP 5/325 TABLET PO PRN (17:30)
[2019-01-04] MEDS ORDERED: GUAIFENESIN/COD200MG-20MG/10ML LIQUID PO PRN (17:30)
[2019-01-04] MEDS ORDERED: D5%-LR+KCL 20MEQ 1,000 ML IV SCH (17:30)
--- NOTE | 2019-01-04 17:50 | NUR ---
REPORT CALLED TO FLOOR. ALL QUESTIONS ADDRESSED WITH FLOOR RN
[2019-01-04] MEDS ORDERED: SODIUM CHLORIDE FLUSH 10ML SYR IVF PRN (18:00)
[2019-01-04 18:06] LABS: ABSOLUTE RETICS # 0.087 x10^6/uL (0.5-2.5); RETICULOCYTE COUNT % 3.78 % (0.5-1.5)
[2019-01-04 18:25] LABS: RED BLOOD COUNT 2.34 x10^6/uL (3.82-5.3)
[2019-01-04 19:59] VITALS: BP 114/62
[2019-01-04 20:23] VITALS: BP 118/69
[2019-01-04] MEDS: ACYCLOVIR 200 MG CAPSULE PO SCH (21:08)
[2019-01-04] MEDS: GABAPENTIN 300 MG CAPSULE PO SCH (21:08)
[2019-01-04 22:37] VITALS: BP 139/78
[2019-01-04] MEDS: ESOMEPRAZOLE SODIUM 80 MG in SODIUM CHLORIDE 0.9% 100 ML IV SCH (23:15)
[2019-01-04 23:35] VITALS: BP 142/75
[2019-01-05] VITALS (11 sets, daily range): BP systolic 91–160; BP diastolic 46–73
[2019-01-05 05:18] LABS: BASOPHILS # (AUTO) 0.02 x10^3/uL (0-0.1); BASOPHILS % (AUTO) 0 % (0-1); EOSINOPHILS % (AUTO) 0 % (1-7); LYMPHOCYTES # (AUTO) 0.41 x10^3/uL (1-3.4); LYMPHOCYTES % (AUTO) 6 % (22-44); MD NO; MEAN CORPUSCULAR HEMOGLOBIN 33.2 pg (27.0-34.8); MEAN CORPUSCULAR VOLUME 97.4 fL (80-100); MEAN PLATELET VOLUME 7.2 fL (7.4-10.4); MONOCYTES # (AUTO) 0.42 x10^3/uL (0.2-0.8); MONOCYTES % (AUTO) 6 % (2-9); NEUTROPHILS # (AUTO) 6.44 x10^3/uL (1.8-6.8); NEUTROPHILS % (AUTO) 88 % (42-75); PLATELET COUNT 228 x10^3/uL (130-400); RED CELL DISTRIBUTION WIDTH 15.4 % (9.6-15.2)
[2019-01-05 05:27] LABS: CALCIUM 9.7 mg/dL (8.5-10.1); CHLORIDE 105 mmol/L (98-107); CREATININE 1.72 mg/dL (0.55-1.02)
[2019-01-05 05:28] LABS: ANION GAP 8 mmol/L (5-15)
[2019-01-05] MEDS ORDERED: POTASSIUM PHOSPHATE 44 MEQ in SODIUM CHLORIDE 0.9% 500 ML IV ONE (07:30)
[2019-01-05] MEDS: GABAPENTIN 300 MG CAPSULE PO SCH ×2 (08:03→20:46)
[2019-01-05] MEDS: ACYCLOVIR 200 MG CAPSULE PO SCH ×2 (08:03→20:55)
[2019-01-05] MEDS: ESOMEPRAZOLE SODIUM 80 MG in SODIUM CHLORIDE 0.9% 100 ML IV SCH ×2 (09:13→17:15)
[2019-01-05] MEDS ORDERED: POTASSIUM CHLORIDE 20 MEQ in SODIUM CHLORIDE 0.9% 250 ML IV ONE (14:30)
[2019-01-05] MEDS ORDERED: SODIUM CHLORIDE 0.9% 1,000 ML IV SCH (14:30)
[2019-01-05] MEDS: SODIUM CHLORIDE 0.9% 1,000 ML IV SCH (15:18)
[2019-01-05] MEDS ORDERED: PROPOFOL 10 MG/ML, 20ML ONE (15:20)
[2019-01-05] MEDS ORDERED: PHENYLEPHRINE 10 MG/ML ONE (15:20)
[2019-01-05] MEDS ORDERED: METOCLOPRAMIDE 5 MG/ML, 2ML IVPush ONE (15:30)
[2019-01-05] MEDS ORDERED: EPINEPHRINE SYRINGE 0.1 MG/ML, 10ML ONE (16:18)
[2019-01-05] MEDS: MORPHINE SULFATE 4 MG/ML, 1ML IVPush PRN (16:59)
[2019-01-05] MEDS: ONDANSETRON 2MG/ML, 2ML IVPush PRN (16:59)
[2019-01-05] MEDS ORDERED: D5%-LR+KCL 20MEQ 1,000 ML IV SCH (17:30)
[2019-01-06] MEDS: SODIUM CHLORIDE 0.9% 1,000 ML IV SCH (02:36)
[2019-01-06] MEDS: ESOMEPRAZOLE SODIUM 80 MG in SODIUM CHLORIDE 0.9% 100 ML IV SCH ×2 (02:44→14:04)
[2019-01-06 03:10] LABS: BASOPHILS % (AUTO) 0 % (0-1); EOSINOPHILS % (AUTO) 0 % (1-7); LYMPHOCYTES % (AUTO) 4 % (22-44); MD NO; MEAN CORPUSCULAR HEMOGLOBIN 31.4 pg (27.0-34.8); MEAN CORPUSCULAR HGB CONC 33.4 g/dL (32.4-35.8); MEAN PLATELET VOLUME 6.9 fL (7.4-10.4); MONOCYTES # (AUTO) 0.56 x10^3/uL (0.2-0.8); MONOCYTES % (AUTO) 6 % (2-9); NEUTROPHILS # (AUTO) 9.24 x10^3/uL (1.8-6.8); NEUTROPHILS % (AUTO) 91 % (42-75); PLATELET COUNT 183 x10^3/uL (130-400); RED CELL DISTRIBUTION WIDTH 17.3 % (9.6-15.2)
[2019-01-06 03:20] LABS: ALANINE AMINOTRANSFERASE 17 U/L (12-78); ANION GAP 5 mmol/L (5-15); CALCIUM 7.2 mg/dL (8.5-10.1); CHLORIDE 117 mmol/L (98-107); CREATININE 0.99 mg/dL (0.55-1.02)
[2019-01-06 03:23] LABS: ALKALINE PHOSPHATASE 55 U/L (45-117); BILIRUBIN,TOTAL 0.4 mg/dL (0.2-1.0); TOTAL PROTEIN 4.3 g/dL (6.4-8.2)
[2019-01-06 04:25] VITALS: BP 136/59
[2019-01-06] MEDS: MORPHINE SULFATE 4 MG/ML, 1ML IVPush PRN ×3 (06:18→20:03)
[2019-01-06] MEDS: ONDANSETRON 2MG/ML, 2ML IVPush PRN ×3 (06:18→20:03)
[2019-01-06] MEDS ORDERED: D5%-0.2% NACL 500 ML IV SCH (07:00)
[2019-01-06] MEDS ORDERED: MAGNESIUM SULFATE PMX 2GM/50ML 50 ML IV ONE (07:00)
[2019-01-06] MEDS: ACYCLOVIR 200 MG CAPSULE PO SCH ×2 (08:34→19:25)
[2019-01-06] MEDS: GABAPENTIN 300 MG CAPSULE PO SCH ×2 (08:34→19:25)
[2019-01-06] MEDS: D5%-0.2% NACL 500 ML IV SCH ×2 (10:05→20:04)
[2019-01-06 16:00] VITALS: BP 145/71
[2019-01-07] MEDS ORDERED: LORazepam 2 MG/ML, 1ML ONE (00:46)
[2019-01-07] MEDS: LORazepam 2 MG/ML, 1ML IVPush PRN ×2 (00:49→15:43)
[2019-01-07] MEDS ORDERED: PROMETHAZINE 25 MG/ML, 1ML IM PRN (01:00)
[2019-01-07] MEDS: ESOMEPRAZOLE SODIUM 80 MG in SODIUM CHLORIDE 0.9% 100 ML IV SCH ×2 (03:43→16:34)
[2019-01-07 04:00] VITALS: BP 142/62
[2019-01-07] MEDS: ONDANSETRON 2MG/ML, 2ML IVPush PRN (06:09)
[2019-01-07] MEDS: MORPHINE SULFATE 4 MG/ML, 1ML IVPush PRN ×2 (06:09→13:14)
[2019-01-07] MEDS ORDERED: MAGNESIUM SULFATE PMX 4GM/100M 100 ML IVPB ONE (07:00)
[2019-01-07] MEDS: GABAPENTIN 300 MG CAPSULE PO SCH ×2 (07:49→21:00)
[2019-01-07] MEDS: ACYCLOVIR 200 MG CAPSULE PO SCH ×2 (07:49→21:00)
[2019-01-07] MEDS: D5%-0.2% NACL 500 ML IV SCH ×2 (08:11→21:00)
[2019-01-07 16:00] VITALS: BP 153/73
[2019-01-08] MEDS: ONDANSETRON 2MG/ML, 2ML IVPush PRN (01:52)
[2019-01-08] MEDS: MORPHINE SULFATE 4 MG/ML, 1ML IVPush PRN ×3 (01:52→21:16)
[2019-01-08] MEDS: ESOMEPRAZOLE SODIUM 80 MG in SODIUM CHLORIDE 0.9% 100 ML IV SCH ×4 (03:37→23:10)
[2019-01-08 07:29] LABS: ANION GAP 6 mmol/L (5-15); CALCIUM 8.7 mg/dL (8.5-10.1); CHLORIDE 112 mmol/L (98-107); CREATININE 0.47 mg/dL (0.55-1.02)
[2019-01-08 07:58] LABS: MEAN CORPUSCULAR HGB CONC 32.9 g/dL (32.4-35.8); MEAN CORPUSCULAR VOLUME 94.3 fL (80-100); MEAN PLATELET VOLUME 6.8 fL (7.4-10.4); PLATELET COUNT 256 x10^3/uL (130-400); RED BLOOD COUNT 2.43 x10^6/uL (3.82-5.3); RED CELL DISTRIBUTION WIDTH 16.2 % (9.6-15.2)
[2019-01-08 08:12] LABS: BASOPHILS % (AUTO) 0 % (0-1); EOSINOPHILS # (AUTO) 0.01 x10^3/uL (0-0.4); EOSINOPHILS % (AUTO) 0 % (1-7); LYMPHOCYTES # (AUTO) 0.26 x10^3/uL (1-3.4); LYMPHOCYTES % (AUTO) 3 % (22-44); MD SCAN; MONOCYTES # (AUTO) 0.35 x10^3/uL (0.2-0.8); MONOCYTES % (AUTO) 3 % (2-9); NEUTROPHILS # (AUTO) 9.75 x10^3/uL (1.8-6.8); NEUTROPHILS % (AUTO) 94 % (42-75)
[2019-01-08] MEDS: FLUOXETINE HCL 20 MG CAPSULE PO SCH (08:21)
[2019-01-08] MEDS: GABAPENTIN 300 MG CAPSULE PO SCH ×3 (08:25→20:39)
[2019-01-08] MEDS: ACYCLOVIR 200 MG CAPSULE PO SCH ×3 (08:25→20:40)
[2019-01-08] MEDS: D5%-0.2% NACL 500 ML IV SCH ×3 (09:00→23:09)
[2019-01-08] MEDS: METOPROLOL TARTRATE 25 MG TABLET PO SCH ×2 (14:17→17:58)
[2019-01-08] MEDS: SUCRALFATE 1 GM/10 ML UDC PO SCH ×3 (14:17→20:39)
[2019-01-08] MEDS: CALCIUM/VITAMIN D3 250-125 TABLET PO SCH ×2 (14:18→20:40)
[2019-01-08] MEDS: AMLODIPINE 5 MG TABLET PO SCH ×2 (14:18→20:39)
[2019-01-08] MEDS: LACTOBACILLUS CHEW TABLET PO SCH (15:03)
[2019-01-08] MEDS: OMEPRAZOLE 20 MG CAPSULE.DR PO SCH (17:56)
[2019-01-08] MEDS: MULTIVITAMIN 1 TABLET PO SCH (17:57)
[2019-01-08] MEDS: FOLIC ACID 1 MG TABLET PO SCH (17:57)
[2019-01-08] MEDS: CHOLECALCIFEROL 400 UNITS/ML ORAL SOL PO SCH (20:00)
[2019-01-08] MEDS: SIMVASTATIN 40 MG TABLET PO SCH (20:40)
[2019-01-08] MEDS: FERROUS SULFATE 325 MG TABLET PO SCH (20:40)
[2019-01-09 04:00] VITALS: BP 109/52
[2019-01-09 06:01] LABS: MEAN CORPUSCULAR HEMOGLOBIN 32.4 pg (27.0-34.8); MEAN CORPUSCULAR HGB CONC 33.6 g/dL (32.4-35.8); MEAN CORPUSCULAR VOLUME 96.3 fL (80-100); MEAN PLATELET VOLUME 6.9 fL (7.4-10.4); PLATELET COUNT 272 x10^3/uL (130-400); RED BLOOD COUNT 2.38 x10^6/uL (3.82-5.3); RED CELL DISTRIBUTION WIDTH 17.2 % (9.6-15.2)
[2019-01-09 06:13] LABS: ANION GAP 4 mmol/L (5-15); CHLORIDE 108 mmol/L (98-107); CREATININE 0.44 mg/dL (0.55-1.02)
[2019-01-09 06:19] LABS: BASOPHILS # (AUTO) 0.04 x10^3/uL (0-0.1); BASOPHILS % (AUTO) 1 % (0-1); EOSINOPHILS % (AUTO) 0 % (1-7); LYMPHOCYTES # (AUTO) 0.37 x10^3/uL (1-3.4); LYMPHOCYTES % (AUTO) 5 % (22-44); MD SCAN; MONOCYTES # (AUTO) 0.54 x10^3/uL (0.2-0.8); MONOCYTES % (AUTO) 7 % (2-9); NEUTROPHILS # (AUTO) 7.39 x10^3/uL (1.8-6.8); NEUTROPHILS % (AUTO) 89 % (42-75)
[2019-01-09] MEDS: OMEPRAZOLE 20 MG CAPSULE.DR PO SCH (06:39)
[2019-01-09] MEDS: SUCRALFATE 1 GM/10 ML UDC PO SCH ×4 (06:39→21:19)
[2019-01-09] MEDS: METOPROLOL TARTRATE 25 MG TABLET PO SCH ×2 (06:40→17:03)
[2019-01-09] MEDS: ACYCLOVIR 200 MG CAPSULE PO SCH ×2 (08:45→21:20)
[2019-01-09] MEDS: FERROUS SULFATE 325 MG TABLET PO SCH (08:45)
[2019-01-09] MEDS: GABAPENTIN 300 MG CAPSULE PO SCH ×2 (08:45→21:19)
[2019-01-09] MEDS: MULTIVITAMIN 1 TABLET PO SCH (08:45)
[2019-01-09] MEDS: CALCIUM/VITAMIN D3 250-125 TABLET PO SCH ×2 (08:45→21:00)
[2019-01-09] MEDS: LACTOBACILLUS CHEW TABLET PO SCH (08:45)
[2019-01-09] MEDS: AMLODIPINE 5 MG TABLET PO SCH ×2 (08:46→21:20)
[2019-01-09] MEDS: FOLIC ACID 1 MG TABLET PO SCH (08:46)
[2019-01-09] MEDS: FLUOXETINE HCL 20 MG CAPSULE PO SCH (09:01)
[2019-01-09] MEDS: PANTOPROZOLE 40MG TABLET PO SCH ×2 (09:34→21:19)
[2019-01-09] MEDS: CHOLECALCIFEROL 400 UNITS/ML ORAL SOL PO SCH (16:30)
[2019-01-09] MEDS: CHOLECALCIFEROL 400 UNITS TABLET PO SCH (18:44)
[2019-01-09 19:01] VITALS: BP 102/62
[2019-01-09] MEDS: SIMVASTATIN 40 MG TABLET PO SCH (21:19)
[2019-01-10] VITALS (8 sets, daily range): BP systolic 99–127; BP diastolic 56–72
[2019-01-10] MEDS: METOPROLOL TARTRATE 25 MG TABLET PO SCH ×2 (05:31→17:23)
[2019-01-10] MEDS: SUCRALFATE 1 GM/10 ML UDC PO SCH ×4 (06:11→20:39)
[2019-01-10] MEDS: ACYCLOVIR 200 MG CAPSULE PO SCH ×2 (08:07→20:39)
[2019-01-10] MEDS: MULTIVITAMIN 1 TABLET PO SCH (08:08)
[2019-01-10] MEDS: FOLIC ACID 1 MG TABLET PO SCH (08:08)
[2019-01-10] MEDS: AMLODIPINE 5 MG TABLET PO SCH ×2 (08:08→20:39)
[2019-01-10] MEDS: LACTOBACILLUS CHEW TABLET PO SCH (08:08)
[2019-01-10] MEDS: FLUOXETINE HCL 20 MG CAPSULE PO SCH (08:08)
[2019-01-10] MEDS: GABAPENTIN 300 MG CAPSULE PO SCH ×2 (08:08→20:38)
[2019-01-10] MEDS: PANTOPROZOLE 40MG TABLET PO SCH ×2 (08:08→20:39)
[2019-01-10] MEDS: CALCIUM/VITAMIN D3 250-125 TABLET PO SCH ×2 (08:09→20:40)
[2019-01-10] MEDS: CHOLECALCIFEROL 400 UNITS TABLET PO SCH (17:23)
[2019-01-10] MEDS: SIMVASTATIN 40 MG TABLET PO SCH (20:39)
[2019-01-11 02:40] VITALS: BP 148/76
[2019-01-11 06:01] VITALS: BP 149/80
[2019-01-11] MEDS: METOPROLOL TARTRATE 25 MG TABLET PO SCH ×2 (06:04→17:16)
[2019-01-11 07:04] VITALS: BP 150/72
[2019-01-11] MEDS: SUCRALFATE 1 GM/10 ML UDC PO SCH ×4 (07:48→20:38)
[2019-01-11] MEDS ORDERED: FERROUS SULFATE 325 MG TABLET PO SCH (08:00)
[2019-01-11] MEDS: LACTOBACILLUS CHEW TABLET PO SCH (08:34)
[2019-01-11] MEDS: FOLIC ACID 1 MG TABLET PO SCH (08:35)
[2019-01-11] MEDS: PANTOPROZOLE 40MG TABLET PO SCH ×2 (08:35→20:38)
[2019-01-11] MEDS: ACETAMINOPHEN 325 MG TABLET PO PRN ×2 (08:35→18:20)
[2019-01-11] MEDS: FLUOXETINE HCL 20 MG CAPSULE PO SCH (08:35)
[2019-01-11] MEDS: ACYCLOVIR 200 MG CAPSULE PO SCH ×2 (08:35→20:38)
[2019-01-11] MEDS: AMLODIPINE 5 MG TABLET PO SCH ×2 (08:36→20:38)
[2019-01-11] MEDS: GABAPENTIN 300 MG CAPSULE PO SCH ×2 (08:36→20:38)
[2019-01-11] MEDS: CALCIUM/VITAMIN D3 250-125 TABLET PO SCH ×2 (08:36→20:38)
[2019-01-11] MEDS: MULTIVITAMIN 1 TABLET PO SCH (08:36)
[2019-01-11 13:51] VITALS: BP 120/67
[2019-01-11] MEDS: CHOLECALCIFEROL 400 UNITS TABLET PO SCH (17:16)
[2019-01-11 18:53] VITALS: BP 133/74
[2019-01-11] MEDS: SIMVASTATIN 40 MG TABLET PO SCH (20:38)
[2019-01-12 03:08] VITALS: BP 155/62
[2019-01-12 04:51] LABS: BASOPHILS # (AUTO) 0.03 x10^3/uL (0-0.1); BASOPHILS % (AUTO) 0 % (0-1); EOSINOPHILS % (AUTO) 0 % (1-7); LYMPHOCYTES # (AUTO) 0.43 x10^3/uL (1-3.4); LYMPHOCYTES % (AUTO) 5 % (22-44); MD NO; MEAN CORPUSCULAR HEMOGLOBIN 30.9 pg (27.0-34.8); MEAN CORPUSCULAR HGB CONC 32.9 g/dL (32.4-35.8); MEAN CORPUSCULAR VOLUME 93.7 fL (80-100); MONOCYTES # (AUTO) 0.52 x10^3/uL (0.2-0.8); MONOCYTES % (AUTO) 6 % (2-9); NEUTROPHILS # (AUTO) 7.84 x10^3/uL (1.8-6.8); NEUTROPHILS % (AUTO) 89 % (42-75); PLATELET COUNT 321 x10^3/uL (130-400); RED BLOOD COUNT 3.03 x10^6/uL (3.82-5.3); RED CELL DISTRIBUTION WIDTH 16.8 % (9.6-15.2)
[2019-01-12 05:02] LABS: ANION GAP 6 mmol/L (5-15); CALCIUM 8.6 mg/dL (8.5-10.1); CHLORIDE 107 mmol/L (98-107); CREATININE 0.49 mg/dL (0.55-1.02)
[2019-01-12 05:30] VITALS: BP 168/75
[2019-01-12] MEDS: METOPROLOL TARTRATE 25 MG TABLET PO SCH (05:34)
[2019-01-12] MEDS ORDERED: POTASSIUM CHLORIDE 20 MEQ TAB.ER.PRT PO ONE (07:00)
[2019-01-12 07:10] VITALS: BP 138/74
[2019-01-12] MEDS: SUCRALFATE 1 GM/10 ML UDC PO SCH ×2 (08:24→11:26)
[2019-01-12] MEDS: ACETAMINOPHEN 325 MG TABLET PO PRN (08:24)
[2019-01-12] MEDS ORDERED: PANT40TA5 PO (08:41)
[2019-01-12] MEDS ORDERED: SUCR1ORA5 PO (08:41)
[2019-01-12] MEDS: GABAPENTIN 300 MG CAPSULE PO SCH (08:48)
[2019-01-12] MEDS: ACYCLOVIR 200 MG CAPSULE PO SCH (08:48)
[2019-01-12] MEDS: FOLIC ACID 1 MG TABLET PO SCH (08:48)
[2019-01-12] MEDS: MULTIVITAMIN 1 TABLET PO SCH (08:48)
[2019-01-12] MEDS: AMLODIPINE 5 MG TABLET PO SCH (08:48)
[2019-01-12] MEDS: LACTOBACILLUS CHEW TABLET PO SCH (08:48)
[2019-01-12] MEDS: FLUOXETINE HCL 20 MG CAPSULE PO SCH (08:49)
[2019-01-12] MEDS: PANTOPROZOLE 40MG TABLET PO SCH (08:49)
[2019-01-12] MEDS: CALCIUM/VITAMIN D3 250-125 TABLET PO SCH (08:50)
[2019-01-12] MEDS ORDERED: METOPROLOL TARTRATE 25 MG TABLET PO SCH (14:00)
[2019-03-27] MEDS ORDERED: ROSU20TA2 PO (06:52)
[2019-03-27] MEDS ORDERED: SUCR1TAB PO (06:52)
[2019-03-27] MEDS ORDERED: BUSP10TA PO (06:52)
[2019-03-27] MEDS ORDERED: MIRT30TA4 PO (06:52)
[2019-03-27] MEDS ORDERED: TIZA4CAP PO (06:52)
[2019-03-27] MEDS ORDERED: OMEP40CA6 PO (06:52)
[2019-03-27] MEDS ORDERED: Vitamin E PO (06:59)
[2019-03-27] MEDS ORDERED: CALC-56 PO (06:59)
[2019-03-30] MEDS ORDERED: ASPI81TA45 PO (08:53)
[2019-03-30] MEDS ORDERED: CLOP75TA PO (08:53)
[2019-03-30] MEDS ORDERED: METO50TA6 PO (08:53)
== END 2019-01-12 13:32 | disposition home or self-care (01) | DRG 377 ==
LOC: ED 17:09 → EDIP 17:10 → ED 17:15 → 4EST 18:06 → CCU 01-05 14:56 → ICU 01-07 11:59 → 3NE 01-09 11:17 → 3NW 01-10 07:35 → DCLOUNGE 01-12 13:23
PROVIDERS: ADMIT Internal Medicine; ATTEND Internal Medicine
PROC: 30233N1 Transfusion of Nonautologous Red Blood Cells into Peripheral Vein, Percutaneous Approach (ICD-10-PCS; principal; 2019-01-04)
PROC: 0W3P8ZZ Control Bleeding in Gastrointestinal Tract, Via Natural or Artificial Opening Endoscopic (ICD-10-PCS; 2019-01-05)
PROC: 3E0G8GC Introduction of Other Therapeutic Substance into Upper GI, Via Natural or Artificial Opening Endoscopic (ICD-10-PCS; 2019-01-05)
PROC: 0D9670Z Drainage of Stomach with Drainage Device, Via Natural or Artificial Opening (ICD-10-PCS; 2019-01-05)
PROC: 0DJ08ZZ Inspection of Upper Intestinal Tract, Via Natural or Artificial Opening Endoscopic (ICD-10-PCS; 2019-01-08)
DX: K28.4 Chronic or unspecified gastrojejunal ulcer with hemorrhage (principal); N17.0 Acute kidney failure with tubular necrosis; K31.1 Adult hypertrophic pyloric stenosis; D62 Acute posthemorrhagic anemia; E87.0 Hyperosmolality and hypernatremia; I35.0 Nonrheumatic aortic (valve) stenosis; R29.6 Repeated falls; I95.9 Hypotension, unspecified; E78.5 Hyperlipidemia, unspecified; E83.39 Other disorders of phosphorus metabolism; E83.42 Hypomagnesemia; E83.52 Hypercalcemia; E86.0 Dehydration; E87.6 Hypokalemia; F17.210 Nicotine dependence, cigarettes, uncomplicated; F32.9 Major depressive disorder, single episode, unspecified; G47.30 Sleep apnea, unspecified; I10 Essential (primary) hypertension; I25.10 Atherosclerotic heart disease of native coronary artery without angina pectoris; Z66 Do not resuscitate; Z79.899 Other long term (current) drug therapy; Z80.1 Family history of malignant neoplasm of trachea, bronchus and lung; Z85.3 Personal history of malignant neoplasm of breast; Z87.11 Personal history of peptic ulcer disease; Z90.3 Acquired absence of stomach [part of]; Z90.710 Acquired absence of both cervix and uterus
CPT/HCPCS: 36415; 36430; 71045; 74018; 80048; 80053; 82728; 82962; 83540; 83550; 83735; 84100; 85014; 85018; 85025; 85045; 85610; 85730; 86850; 86870; 86900; 86902; 86922; 86923; 87081; 93005; 96374; G0378; J2405; J2704; J3480; C9113; J0360; J2060; J2270; J2370; J2765; J3475; J7030; J7040; J7050; P9016

== ENCOUNTER 2019-06-29 12:31 | Observation (INO) | payer MEDICARE ==
[~2019-06-29] VITALS: Ht 167.6 cm; Wt 43.2 kg
[~2019-06-29 12:31] MED LIST changes: +ASPI81TA45 PO; +BUSP10TA PO; +CALC-56 PO; +CALC200T24 PO; +CLOP75TA PO; +CYAN100074 PO; +FLUT1DIS IH; +FURO-93 PO; +LISI10TA2 PO; +METO50TA6 PO; +MIRT30TA4 PO; +NICO-485 TD; +OMEP-110 PO; +OMEP40CA42 PO; -PHENYLEPHRINE 10 MG/ML ONE; +POLY17PO5 PO; +PRED5TAB PO; -PROPOFOL 10 MG/ML, 20ML ONE; +ROSU20TA2 PO; +SUCR1ORA5 PO; +SUCR1TAB PO; +TIOT18CA INH; +TIZA4CAP PO; +Vitamin E PO
--- NOTE | 2019-06-29 12:41 | NUR ---
RADHA LLANES FROM HOME. PT DC FROM [facility] YESTERDAY AFTER STOMACH ULCER SURGERY. PT FEELS TOO WEAK TO BE HOME. PT STATES SHE DOESN'T WANT TO WALK. "NEEDS MORE TIME IN THE HOSPITAL". ABD SURGICAL SITE CLOSED WITH JERROD, WELL APPROXIMATED, NO DRAINAGE, NO REDNESS OR SWELLING NOTED. PT CONNECTED TO MONITORING. CALL LIGHT IN REACH. AWAITING ORDERS AT THIS TIME.
[2019-06-29] MEDS ORDERED: SODIUM CHLORIDE 0.9% 1,000 ML IV ONE (12:51)
[2019-06-29] MEDS ORDERED: SODIUM CHLORIDE FLUSH 10ML SYR IVF ONE (13:00)
[2019-06-29 13:15] LABS: MEAN CORPUSCULAR HEMOGLOBIN 31.7 pg (27.0-34.8); MEAN CORPUSCULAR HGB CONC 32.9 g/dL (32.4-35.8); MEAN CORPUSCULAR VOLUME 96.5 fL (80-100); MEAN PLATELET VOLUME 7.4 fL (7.4-10.4); PLATELET COUNT 153 x10^3/uL (130-400); RED BLOOD COUNT 3.37 x10^6/uL (3.82-5.3); RED CELL DISTRIBUTION WIDTH 16.2 % (9.6-15.2)
[2019-06-29 13:23] LABS: ALBUMIN 2.4 g/dL (3.4-5.0); ANION GAP 7 mmol/L (5-15); CHLORIDE 100 mmol/L (98-107); CREATININE 0.33 mg/dL (0.55-1.02)
[2019-06-29 13:26] LABS: ALANINE AMINOTRANSFERASE 24 U/L (12-78); ALKALINE PHOSPHATASE 102 U/L (45-117); BILIRUBIN,TOTAL 0.7 mg/dL (0.2-1.0); TOTAL PROTEIN 6.3 g/dL (6.4-8.2)
--- NOTE | 2019-06-29 13:54 | NUR ---
PT RESTING COMFORTABLY ON GURNEY. NADN. WARM BLANKET PROVIDED. AWAITING ADMIT BED UPSTAIRS.
[2019-06-29 14:25] LABS: BASOPHILS # (AUTO) 0.02 x10^3/uL (0-0.1); BASOPHILS % (AUTO) 0 % (0-1); EOSINOPHILS % (AUTO) 0 % (1-7); LYMPHOCYTES # (AUTO) 0.37 x10^3/uL (1-3.4); LYMPHOCYTES % (AUTO) 4 % (22-44); MD SCAN; MONOCYTES # (AUTO) 0.37 x10^3/uL (0.2-0.8); MONOCYTES % (AUTO) 4 % (2-9); NEUTROPHILS # (AUTO) 8.39 x10^3/uL (1.8-6.8); NEUTROPHILS % (AUTO) 92 % (42-75)
[2019-06-29] MEDS ORDERED: ONDANSETRON ODT 4 MG PO PRN (14:30)
[2019-06-29] MEDS ORDERED: BUTALB/APAP/CAFFEINE 50MG/325MG/40MG PO PRN ×2 (14:30)
[2019-06-29] MEDS ORDERED: hydrALAzine 20 MG/ML, 1ML IVPush PRN (14:30)
[2019-06-29] MEDS ORDERED: LABETALOL 5MG/ML, 20ML IVPush PRN (14:30)
[2019-06-29] MEDS ORDERED: ONDANSETRON 2MG/ML, 2ML IVPush PRN (14:30)
[2019-06-29] MEDS ORDERED: TEMPLATE NON-FORMULARY MED. (Guaifenesin/Pseudoephedrne Hcl** (Mucinex D Er Tablet**) 1 TA PO PRN (14:30)
[2019-06-29] MEDS ORDERED: CALCIUM CARBONATE 500 MG TAB.CHEW PO PRN (14:30)
[2019-06-29] MEDS ORDERED: TEMAZEPAM 15 MG CAPSULE PO PRN (14:30)
[2019-06-29] MEDS ORDERED: POLYETHYLENE GLYCOL 17 GM PACKET PO PRN ×2 (14:30)
[2019-06-29] MEDS ORDERED: DIPHENHYDRAMINE 25 MG CAPSULE PO PRN (14:30)
[2019-06-29] MEDS: NICOTINE 7 MG/24 HR PATCH.TD24 TD SCH (14:30)
--- NOTE | 2019-06-29 14:59 | NUR ---
REPORT GIVEN TO GURDEEP MCKOY
[2019-06-29 15:54] VITALS: BP 152/88
[2019-06-29] MEDS: HYDROcodone/APAP 5/325 TABLET PO PRN (16:07)
[2019-06-29] MEDS: GABAPENTIN 300 MG CAPSULE PO SCH ×2 (16:07→20:45)
[2019-06-29] MEDS ORDERED: IPRATROPIUM 0.5 MG/2.5 ML INHA NPPB SCH (17:00)
[2019-06-29 18:33] VITALS: BP 111/65
[2019-06-29 18:45] VITALS: BP 111/65
[2019-06-29] MEDS: ALBUTEROL/IPRATROPIUM 2.5MG/0.5MG, 3 ML NPPB SCH (19:42)
[2019-06-29] MEDS: BUDESONIDE 0.5 MG/2 ML INHA NPPB SCH (19:42)
[2019-06-29] MEDS: ATORVASTATIN 80 MG TABLET PO SCH (20:44)
[2019-06-29] MEDS: ACYCLOVIR 200 MG CAPSULE PO SCH (20:45)
[2019-06-29] MEDS: BUSPIRONE 10 MG TABLET PO SCH (20:45)
[2019-06-29] MEDS: TIZANIDINE 4MG TABLET PO SCH (20:45)
[2019-06-29] MEDS: AMLODIPINE 5 MG TABLET PO SCH (20:45)
[2019-06-29] MEDS: METOPROLOL TARTRATE 25 MG TABLET PO SCH (20:45)
[2019-06-29] MEDS: FERROUS SULFATE 325 MG TABLET PO SCH (20:45)
[2019-06-29] MEDS: OMEPRAZOLE 20 MG CAPSULE.DR PO SCH (20:45)
[2019-06-29] MEDS ORDERED: TEMPLATE NON-FORMULARY MED. (Biotin** 5,000 MG) PO SCH (21:00)
[2019-06-29] MEDS ORDERED: TEMPLATE NON-FORMULARY MED. (Fluticasone/Salmeterol** (Advair 100-50 Diskus**) 1 PUFF) IH SCH (21:00)
[2019-06-30] MEDS: BACLOFEN 10 MG TABLET PO PRN (01:38)
[2019-06-30 02:00] VITALS: BP 125/75
[2019-06-30] MEDS: ALBUTEROL/IPRATROPIUM 2.5MG/0.5MG, 3 ML NPPB SCH ×4 (03:00→20:37)
[2019-06-30] MEDS: HYDROcodone/APAP 5/325 TABLET PO PRN ×2 (04:35→17:55)
[2019-06-30 05:19] LABS: ANION GAP 5 mmol/L (5-15); BASOPHILS % (AUTO) 0 % (0-1); CALCIUM 8.4 mg/dL (8.5-10.1); CHLORIDE 104 mmol/L (98-107); EOSINOPHILS # (AUTO) 0.13 x10^3/uL (0-0.4); EOSINOPHILS % (AUTO) 1 % (1-7); LYMPHOCYTES # (AUTO) 0.33 x10^3/uL (1-3.4); LYMPHOCYTES % (AUTO) 4 % (22-44); MD NO; MEAN CORPUSCULAR HEMOGLOBIN 32.1 pg (27.0-34.8); MEAN CORPUSCULAR HGB CONC 33.8 g/dL (32.4-35.8); MEAN PLATELET VOLUME 7.7 fL (7.4-10.4); MONOCYTES # (AUTO) 0.32 x10^3/uL (0.2-0.8); MONOCYTES % (AUTO) 4 % (2-9); NEUTROPHILS % (AUTO) 91 % (42-75); PLATELET COUNT 143 x10^3/uL (130-400); RED BLOOD COUNT 2.84 x10^6/uL (3.82-5.3); RED CELL DISTRIBUTION WIDTH 16.3 % (9.6-15.2)
[2019-06-30] MEDS: GABAPENTIN 300 MG CAPSULE PO SCH ×4 (05:51→20:14)
[2019-06-30] MEDS: BUDESONIDE 0.5 MG/2 ML INHA NPPB SCH ×2 (07:55→20:37)
[2019-06-30 08:14] VITALS: BP 99/65
[2019-06-30] MEDS ORDERED: PRED5TAB PO (08:36)
[2019-06-30] MEDS ORDERED: TEMPLATE NON-FORMULARY MED. (Tiotropium Bromide** (Spiriva**) 18 MCG) INH SCH (09:00)
[2019-06-30] MEDS: MIRTAZAPINE 30 MG TABLET PO SCH (09:01)
[2019-06-30] MEDS: CLOPIDOGREL 75 MG TABLET PO SCH (09:01)
[2019-06-30] MEDS: METOPROLOL TARTRATE 25 MG TABLET PO SCH ×2 (09:01→20:14)
[2019-06-30] MEDS: ACYCLOVIR 200 MG CAPSULE PO SCH ×2 (09:01→20:14)
[2019-06-30] MEDS: ASPIRIN 81 MG TABLET EC PO SCH (09:01)
[2019-06-30] MEDS: CALCIUM/VITAMIN D3 250-125 TABLET PO SCH (09:01)
[2019-06-30] MEDS: CHOLECALCIFEROL 400 UNITS TABLET PO SCH (09:01)
[2019-06-30] MEDS: POTASSIUM CHLORIDE 10 MEQ TABLET.ER PO SCH (09:02)
[2019-06-30] MEDS: BUSPIRONE 10 MG TABLET PO SCH ×2 (09:02→20:14)
[2019-06-30] MEDS: FERROUS SULFATE 325 MG TABLET PO SCH ×2 (09:02→20:14)
[2019-06-30] MEDS: FLUOXETINE HCL 20 MG CAPSULE PO SCH (09:02)
[2019-06-30] MEDS: OMEPRAZOLE 20 MG CAPSULE.DR PO SCH ×2 (09:02→20:14)
[2019-06-30] MEDS: MULTIVITAMIN 1 TABLET PO SCH (09:02)
[2019-06-30] MEDS: VITAMIN E 400 UNITS CAPSULE PO SCH (09:02)
[2019-06-30] MEDS: FOLIC ACID 1 MG TABLET PO SCH (09:02)
[2019-06-30] MEDS: LISINOPRIL 10 MG TABLET PO SCH (09:05)
[2019-06-30] MEDS: AMLODIPINE 5 MG TABLET PO SCH ×2 (09:05→20:15)
[2019-06-30 09:06] VITALS: BP 112/63
[2019-06-30] MEDS: FUROSEMIDE 20 MG TABLET PO SCH (09:06)
[2019-06-30 12:41] VITALS: BP 93/56
[2019-06-30] MEDS: NICOTINE 7 MG/24 HR PATCH.TD24 TD SCH (16:17)
[2019-06-30 19:11] VITALS: BP 116/78
[2019-06-30 19:22] LABS: CULTURE INDICATED? YES; MICROSCOPIC INDICATED
[2019-06-30] MEDS: ATORVASTATIN 80 MG TABLET PO SCH (20:14)
[2019-06-30] MEDS: TIZANIDINE 4MG TABLET PO SCH (20:15)
[2019-07-01 02:35] VITALS: BP 106/65
[2019-07-01] MEDS: ALBUTEROL/IPRATROPIUM 2.5MG/0.5MG, 3 ML NPPB SCH ×4 (03:00→21:17)
[2019-07-01] MEDS: BACLOFEN 10 MG TABLET PO PRN (04:02)
[2019-07-01] MEDS: GABAPENTIN 300 MG CAPSULE PO SCH ×4 (06:06→20:40)
[2019-07-01 07:08] VITALS: BP 104/65
[2019-07-01] MEDS: LISINOPRIL 10 MG TABLET PO SCH (09:00)
[2019-07-01] MEDS: CALCIUM/VITAMIN D3 250-125 TABLET PO SCH (09:33)
[2019-07-01] MEDS: VITAMIN E 400 UNITS CAPSULE PO SCH (09:34)
[2019-07-01] MEDS: CHOLECALCIFEROL 400 UNITS TABLET PO SCH (09:34)
[2019-07-01] MEDS: FLUOXETINE HCL 20 MG CAPSULE PO SCH (09:34)
[2019-07-01] MEDS: MIRTAZAPINE 30 MG TABLET PO SCH (09:34)
[2019-07-01] MEDS: BUSPIRONE 10 MG TABLET PO SCH ×2 (09:34→20:40)
[2019-07-01] MEDS: MULTIVITAMIN 1 TABLET PO SCH (09:34)
[2019-07-01] MEDS: OMEPRAZOLE 20 MG CAPSULE.DR PO SCH ×2 (09:34→20:40)
[2019-07-01] MEDS: FERROUS SULFATE 325 MG TABLET PO SCH ×2 (09:34→20:40)
[2019-07-01] MEDS: FUROSEMIDE 20 MG TABLET PO SCH (09:34)
[2019-07-01] MEDS: CLOPIDOGREL 75 MG TABLET PO SCH (09:34)
[2019-07-01 09:35] VITALS: BP 114/64
[2019-07-01] MEDS: FOLIC ACID 1 MG TABLET PO SCH (09:35)
[2019-07-01] MEDS: AMLODIPINE 5 MG TABLET PO SCH ×2 (09:35→20:54)
[2019-07-01] MEDS: METOPROLOL TARTRATE 25 MG TABLET PO SCH ×2 (09:35→20:40)
[2019-07-01] MEDS: BUDESONIDE 0.5 MG/2 ML INHA NPPB SCH ×2 (09:35→21:17)
[2019-07-01] MEDS: ACYCLOVIR 200 MG CAPSULE PO SCH ×2 (09:35→20:40)
[2019-07-01] MEDS: POTASSIUM CHLORIDE 10 MEQ TABLET.ER PO SCH (09:35)
[2019-07-01] MEDS: ASPIRIN 81 MG TABLET EC PO SCH (09:36)
[2019-07-01 14:10] VITALS: BP 106/65
[2019-07-01 14:15] VITALS: BP 108/65
[2019-07-01] MEDS: NICOTINE 7 MG/24 HR PATCH.TD24 TD SCH (14:17)
[2019-07-01] MEDS: HYDROcodone/APAP 5/325 TABLET PO PRN (14:17)
[2019-07-01 19:34] VITALS: BP 97/61
[2019-07-01] MEDS: ACETAMINOPHEN 325 MG TABLET PO PRN (20:40)
[2019-07-01] MEDS: ATORVASTATIN 80 MG TABLET PO SCH (20:40)
[2019-07-01] MEDS: TIZANIDINE 4MG TABLET PO SCH (20:40)
[2019-07-02 00:19] VITALS: BP 100/63
[2019-07-02] MEDS: ALBUTEROL/IPRATROPIUM 2.5MG/0.5MG, 3 ML NPPB SCH ×2 (02:51→09:00)
[2019-07-02 05:03] LABS: BASOPHILS # (AUTO) 0.03 x10^3/uL (0-0.1); BASOPHILS % (AUTO) 0 % (0-1); EOSINOPHILS % (AUTO) 0 % (1-7); LYMPHOCYTES % (AUTO) 4 % (22-44); MD NO; MEAN CORPUSCULAR HEMOGLOBIN 31.9 pg (27.0-34.8); MEAN CORPUSCULAR HGB CONC 32.9 g/dL (32.4-35.8); MEAN PLATELET VOLUME 8.1 fL (7.4-10.4); MONOCYTES # (AUTO) 0.24 x10^3/uL (0.2-0.8); MONOCYTES % (AUTO) 3 % (2-9); NEUTROPHILS # (AUTO) 7.39 x10^3/uL (1.8-6.8); NEUTROPHILS % (AUTO) 93 % (42-75); PLATELET COUNT 140 x10^3/uL (130-400); RED BLOOD COUNT 2.86 x10^6/uL (3.82-5.3); RED CELL DISTRIBUTION WIDTH 16.1 % (9.6-15.2)
[2019-07-02] MEDS: GABAPENTIN 300 MG CAPSULE PO SCH ×4 (05:55→20:24)
[2019-07-02 07:10] VITALS: BP 108/66
[2019-07-02] MEDS: HYDROcodone/APAP 5/325 TABLET PO PRN ×2 (07:32→15:41)
[2019-07-02] MEDS: AMLODIPINE 5 MG TABLET PO SCH ×2 (09:00→21:00)
[2019-07-02] MEDS: METOPROLOL TARTRATE 25 MG TABLET PO SCH ×2 (09:00→20:24)
[2019-07-02] MEDS: LISINOPRIL 10 MG TABLET PO SCH (09:00)
[2019-07-02] MEDS: FLUOXETINE HCL 20 MG CAPSULE PO SCH (09:36)
[2019-07-02] MEDS: OMEPRAZOLE 20 MG CAPSULE.DR PO SCH ×2 (09:36→20:24)
[2019-07-02] MEDS: ASPIRIN 81 MG TABLET EC PO SCH (09:36)
[2019-07-02] MEDS: VITAMIN E 400 UNITS CAPSULE PO SCH (09:36)
[2019-07-02] MEDS: BUSPIRONE 10 MG TABLET PO SCH ×2 (09:36→20:24)
[2019-07-02] MEDS: FUROSEMIDE 20 MG TABLET PO SCH (09:37)
[2019-07-02] MEDS: MIRTAZAPINE 30 MG TABLET PO SCH (09:37)
[2019-07-02] MEDS: CLOPIDOGREL 75 MG TABLET PO SCH (09:37)
[2019-07-02] MEDS: ACYCLOVIR 200 MG CAPSULE PO SCH ×2 (09:37→20:25)
[2019-07-02] MEDS: CHOLECALCIFEROL 400 UNITS TABLET PO SCH (09:37)
[2019-07-02] MEDS: FERROUS SULFATE 325 MG TABLET PO SCH ×2 (09:37→20:24)
[2019-07-02] MEDS: CALCIUM/VITAMIN D3 250-125 TABLET PO SCH (09:37)
[2019-07-02] MEDS: FOLIC ACID 1 MG TABLET PO SCH (09:37)
[2019-07-02] MEDS: POTASSIUM CHLORIDE 10 MEQ TABLET.ER PO SCH (09:37)
[2019-07-02] MEDS: MULTIVITAMIN 1 TABLET PO SCH (09:37)
[2019-07-02] MEDS: BUDESONIDE 0.5 MG/2 ML INHA NPPB SCH ×2 (10:25→21:00)
[2019-07-02] MEDS: NICOTINE 7 MG/24 HR PATCH.TD24 TD SCH (14:30)
[2019-07-02 14:43] VITALS: BP 127/78
[2019-07-02 19:49] VITALS: BP 105/68
[2019-07-02] MEDS: TIZANIDINE 4MG TABLET PO SCH (20:24)
[2019-07-02] MEDS: ATORVASTATIN 80 MG TABLET PO SCH (20:25)
[2019-07-02] MEDS: ACETAMINOPHEN 325 MG TABLET PO PRN (23:24)
[2019-07-03 01:08] VITALS: BP 98/63
[2019-07-03] MEDS: HYDROcodone/APAP 5/325 TABLET PO PRN (04:23)
[2019-07-03] MEDS: GABAPENTIN 300 MG CAPSULE PO SCH ×2 (05:35→09:32)
[2019-07-03 06:55] VITALS: BP 109/64
[2019-07-03] MEDS: METOPROLOL TARTRATE 25 MG TABLET PO SCH (09:00)
[2019-07-03] MEDS: FUROSEMIDE 20 MG TABLET PO SCH (09:00)
[2019-07-03] MEDS: LISINOPRIL 10 MG TABLET PO SCH (09:00)
[2019-07-03] MEDS: POTASSIUM CHLORIDE 10 MEQ TABLET.ER PO SCH (09:32)
[2019-07-03] MEDS: CHOLECALCIFEROL 400 UNITS TABLET PO SCH (09:32)
[2019-07-03] MEDS: FERROUS SULFATE 325 MG TABLET PO SCH (09:32)
[2019-07-03] MEDS: CALCIUM/VITAMIN D3 250-125 TABLET PO SCH (09:32)
[2019-07-03] MEDS: VITAMIN E 400 UNITS CAPSULE PO SCH (09:32)
[2019-07-03] MEDS: MULTIVITAMIN 1 TABLET PO SCH (09:32)
[2019-07-03] MEDS: ASPIRIN 81 MG TABLET EC PO SCH (09:32)
[2019-07-03] MEDS: FOLIC ACID 1 MG TABLET PO SCH (09:32)
[2019-07-03] MEDS: BUSPIRONE 10 MG TABLET PO SCH (09:32)
[2019-07-03] MEDS: MIRTAZAPINE 30 MG TABLET PO SCH (09:32)
[2019-07-03] MEDS: CLOPIDOGREL 75 MG TABLET PO SCH (09:32)
[2019-07-03] MEDS: FLUOXETINE HCL 20 MG CAPSULE PO SCH (09:32)
[2019-07-03] MEDS: OMEPRAZOLE 20 MG CAPSULE.DR PO SCH (09:32)
[2019-07-03] MEDS: AMLODIPINE 5 MG TABLET PO SCH (09:33)
[2019-07-03] MEDS: ACYCLOVIR 200 MG CAPSULE PO SCH (09:33)
[2019-07-03] MEDS: BACLOFEN 10 MG TABLET PO PRN (09:35)
[2019-07-03 11:00] VITALS: BP 120/73
== END 2019-07-03 11:25 ==
LOC: ED 13:24 → INTOOBSV 13:42 → EDIP 13:42 → 4NE 15:39
PROVIDERS: ADMIT Internal Medicine; ATTEND Family Medicine
DX: R53.1 Weakness (principal); I50.32 Chronic diastolic (congestive) heart failure; E44.0 Moderate protein-calorie malnutrition; D64.9 Anemia, unspecified; R62.7 Adult failure to thrive; I25.10 Atherosclerotic heart disease of native coronary artery without angina pectoris; K92.2 Gastrointestinal hemorrhage, unspecified; E78.5 Hyperlipidemia, unspecified; E87.1 Hypo-osmolality and hyponatremia; F17.210 Nicotine dependence, cigarettes, uncomplicated; F32.9 Major depressive disorder, single episode, unspecified; I11.0 Hypertensive heart disease with heart failure; I35.0 Nonrheumatic aortic (valve) stenosis; G89.29 Other chronic pain; J44.9 Chronic obstructive pulmonary disease, unspecified; Z90.3 Acquired absence of stomach [part of]; Z95.5 Presence of coronary angioplasty implant and graft; Z85.3 Personal history of malignant neoplasm of breast
CPT/HCPCS: 36415; 80048; 80053; 81001; 83735; 84100; 84443; 85025; 87077; 87086; 87186; 94640; 97162; 97530; 99284; G0378; J7030; J7620; J7626; 99285